=== PATIENT | male | born 1955 | race Caucasian/White ===

== ENCOUNTER 2024-10-17 00:57 | Emergency (ER) | payer MEDICARE, SELFPAY ==
--- OUTSIDE RECORDS SUMMARY | 2024-10-17 00:59 | XMS_ITS | Clinical Summary ---
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 History of biopsy in spring 2005, normal. Personal history of colonic polyps 11/10/2007 Overview (10/25/2022): Adenomatous polyp 04/2006 Colonoscopy 09/2011 normal repeat in 5 years Colonoscopy 05/2017 polyps, repeat in 5 years Colonoscopy 10/2022 SSA, repeat in 3 years Dyskinesia of esophagus 11/10/2007 Actinic keratosis 11/10/2007 Immunizations Immunization Administration Dates Next Due AMB INFLUENZA, IIV4 (AGE=>6M OS) MDV (Flu Clinic Only) 02/13/2017 Amb Influenza, Inactivated A IIV4 (Age 65+ Years) Preserv Free 02/25/2020 Influenza, High-dose Inactivated 01/26/2024 Influenza, High-dose Quadriv alent Inactivated 02/09/2021 Influenza, IIV3 (Age 6-35 mos) 02/22/2016,2014 Influenza, IIV3 (Age >=3 years) 02/19/2014 Influenza, IIV4 03/03/2018,01/29/2016,01/29/2015 Influenza, Inactivated AIIV4 (Age 65+ Years) Preserv Free 03/30/2023 Influenza, Inactivated IIV3 (Age 65+ Years) Preserv Free 02/25/2020 Pneumococcal Conj 20-valent (Prevnar 20) 024 Pneumococcal Poly,23-Valent (Pneumovax) 06/06/19 22 Td (Age >=7 Years) 09/15/1996 Tdap 04/01/2020,11/06/2009 Zoster (Shingrix-RZV, recombinant) 05/01/2020, Family History Medical History Relation Name Comments Cancer-prostate Brother Other Father alcohol dependa nce and of this at 60 Heart failure Half-Sister 1 of this and kidney failure at 66 Kidney disease Half-Sister 1 Obesity Half-Sister 1 Alcoholism Mother Dementia Mother Diabetes Mother Hypertension Mother Stroke Mother of this Relation Name Status Comments Brother Alive Father Half-Brother Alive Half-Sister 1 Half-Sister 2 Alive Mother (Age 82) stroke Paternal Aunt brain tumor Paternal Grandfather pacemak er Paternal Grandmother Social History Tobacco Use Types Packs/Day Years Used Date Smoking Tobacco: Never Passive Smoke Exposure: Never Smokeless Tobacco: Never Tobacco Cessation:Counseling Given: Yes Alcohol Use Standard Drinks/Week Comments Yes 0 (1 standard drink = 0.6 oz pure alcohol) maybe a couple times a month; 1-2 glasses of wine or a beer PHQ-2 Answer Date Recorded PHQ-2 TOTAL SCORE 0 01/23/2024 Social Connections Answer Date Recorded Do you often feel lonely or isolated from those around you? 0 01/23/2024 Alcohol Use Answer Date Recorded How often do you have a drink containing alcohol ? 2 01/21/2023 How many drinks containing a lcohol do you have on a typical day when you are drinking? 0 01/21/2023 How often do you have five or more drinks on one occasion? 0 01/21/2023 Financial Resource Strain Answer Date R ecorded Difficulty of Paying Living Expenses 3 01/23/2024 Difficulty of Paying Living Expenses Not on file 01/23/2024 Food Insecurity Answer Date Recorded Do you worry your food will run out before you are able to buy more? 1 01/23/2024 Transportation Needs Answer Date Record ed Does lack of transportation keep you from medica l appointments? 1 01/23/2024 Does lack of transportation keep you from work, meetings or getting things that you need? 1 01/23/2024 Housing Stability Answer Date Recorded What is your housing situation today? 1 01/23/2024 Utilities Answer Date Recorded Do you have trouble paying f or utilities (for example, heat, electricity, water, phone)? 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 Gender Identity Not on file Sexual Orientation Not on file Occupation Industry Job Start Date Job End Date works at [employer] Not on file Not on file Not on file Obstetrics History Last Filed Vital Signs Vital Sign Reading Time Taken Comments Blood Pressure 137/89 04/02/2024 11:17 AM BRIDGE MAINTENANCE WORKER Pulse 61 04/02/2024 11:17 AM BRIDGE MAINTENANCE WORKER Temperature 36.7 C (98.1 F) 04/02/2024 10:28 AM BRIDGE MAINTENANCE WORKER Respiratory Rate 14 04/02/2024 10:28 AM BRIDGE MAINTENANCE WORKER Oxygen Saturation 96% 04/02/2024 10:28 AM BRIDGE MAINTENANCE WORKER Inhaled Oxygen Concentration - - Weight 86.4 kg (190 lb 7.2 oz) 04/02/2024 10:28 AM BRIDGE MAINTENANCE WORKER Height 180.4 cm (5' 11.02) 04/02/2024 10:28 AM BRIDGE MAINTENANCE WORKER Body Mass Index 26.54 04/02/2024 10:28 AM BRIDGE MAINTENANCE WORKER Plan of Treatment Health Maintenance Due Date Last Done Comments RSV vaccine for adults or (1 - Risk 60-74 years 1-dose series) 2013 Medicare Wellness for age 65+ 2018 COVID-19 vaccine series ( season) 2024 01/26/2024, 03/30/2023, 03/28/2021, Additional history exists Depression screening for age 12+ 01/22/2025 01/23/2024, 01/21/2023, 06/06/2021, Additional history exists BMI (ht and wt on same day) for age 18+ 04/02/2025 04/02/2024, 01/23/2024, 01/21/2023, Additional history exists Colonoscopy through age 75 10/23/202510/23, 10/23/2022, 05/23/2017, Additional history exists Lipids for age 45-75 01/22/2029 01/23/2024, 01/21/2023, 06/06/2021, Additional history exists Tetanus booster 04/01/2030 04/01/2020, 10/18, 09/15/1996 Hepatitis C screening for age 18-79 Completed 02/04/2014 Tdap Completed 04/01/2020, 11/06/2009 Zoster (shingles) series for age 50+ Completed 05/01/2020, 02/25/2020 Influenza Vaccine Completed 01/26/2024, , 02/25/2020, Additional history exists Pneumococcal series for age 50+ Completed 04/02/2024, 06/06/2021 Hepatitis B series for 19+ Aged Out N o longer eligible based on patient's age to complete this topic Procedures Procedure Name Priority Date/Time Associated Diagnosis Comments LIPID PANEL W REFLEX MEASURED LDL Routine 01/23/2024 11:27 AM CDT Lipid screening COLONOSCOPY 10/23/2022 11:11 AM CDT ANTI HCV Routine 02/04/2014 2:23 PM CDT Need for hepatitis C screening test from Last 3 Months or Most Recently Relevant to Health Maintenance Results * LIPID PANEL W REFLEX MEASURED LDL (01/23/2024 11:27 AM CDT) CHOLESTEROL,TOTAL 181 100 - 199 mg/dL 01/23/2024 11:13 PM CDT [facility] Comment: Cholesterol, Total Reference Ranges Desirable <200 mg/dL Borderline 200-239 mg/dL High >=240 mg/dL TRIGLYCERIDES 47 <150 mg/dL 01/23/2024 11:13 PM CDT [facility] HDL CHOLESTEROL 62 >40 mg/dL 11:13 PM CDT [facility] NON-HDL CHOLESTEROL 119 <145 mg/dl 01/23/2024 11:13 PM CDT [facility] CHOL/HDL RATIO 2.92 <4.50 01/23/2024 11:13 PM CDT [facility] LDL CHOLESTEROL 110 <=130 mg/dL 01/23/2024 11:13 PM CDT [facility] VLDL CHOLESTEROL 9 <=30 mg/dL 01/23/2024 11:13 PM CDT [facility] PROVIDER ORDERED STATUS RANDOM 01/23/2024 11:13 PM CDT [facility] Blood BLOOD SPECIMEN / Unknown Venipuncture / Unknown 01/23/2024 11:27 AM CDT 01/23/2024 11:27 AM CDT us Ángel Dwyer MD CHEMISTRY Final Resu lt [facility] [address] [place] [address], [place] * COLONOSCOPY (10/23/2022 11:11 AM CDT) 10/23/2022 11:1 1 AM CDT Narrative Transcriptions Dustin Sanders MD - 10/23/2022 12:01 PM CDT Patient Name: Bear Kinney Procedure Date: 10/23/2022 Gender: Male Date of : 1955 Admit Type: Outpatient Procedure: Colonoscopy Proceduralist: Dustin Sanders MD , Ellie Schwartz RN (Nurse), Kasia Medrano (Nurse) Indications/Pre-Op Diagnosis: High risk colon cancer surveillance:Personal history of sessile serrated colon polyp(less than 10 mm in size) with no dysplasia, Last colonoscopy: May 2017 Medications: Fentanyl 100 micrograms IV, Midazolam 2 mgIV, The level of sedation administered wasmoderate Procedure Description: The patient had risks, benefits and alternatives explained to andgave informed consent. The patient had a stable cardiopulmonary status and judged an adequate candidate for conscious sedation. The endoscope [id number] was passed through the anus andadvanced to the cecum, identified by appendiceal orifice and ileocecal valve.The colonoscopy was performed without difficulty. The patient toleratedthe procedure well. The quality of the bowel preparation was good. The ileocecal valve, appendiceal orifice, and rectum were photographed. Complications: No immediate complications. Estimated Blood Loss & Specimen: Estimated blood loss: none. Specimen collected - Yes and sent to Laboratory Findings: The perianal and digital rectal examinations were normal. A 2 mm polyp was found in the rectum. The polyp was sessile. Thepolyp was removed with a cold biopsy forceps. Resection and retrieval were complete. A few small-mouthed diverticula were found in the sigmoid colon. The colon (entire examined portion) was mildly redundant. The exam was otherwise without abnormality on direct and retroflexion views. Impressions/Post-Op Diagnosis: - One 2 mm polyp in the rectum, removed with a cold biopsy forceps. Resected and retrieved. - Diverticulosis in the sigmoid colon. - Redundant colon. - The examination was otherwise normal on direct and retroflexionviews. Recommendation: - Patient has a contact number available for emergencies. The signsand symptoms of potential delayed complications were discussed with the patient. Return to normal activities tomorrow. Written discharge instructions were provided to the patient. - Resume previous diet. - Continue present medications. - Await pathology results. - Repeat colonoscopy is recommended. The colonoscopy date will be determined after pathology results from today's exam become available for review. Moderate Sedation: A time out was performed before the procedure. Moderate (conscious) sedation was administered by the endoscopy nurse and supervised bythe endoscopist. The following parameters were monitored: oxygensaturation, heart rate, blood pressure, EKG, CO2, respiratory rate, adequacy of pulmonary ventilation and reponse to care. Please refer to the patient's medical record flowsheets and nursing notes for moderate sedation details. Total physician intraservice time was 20 minutes. Dustin Sanders MD 10/23/2022 12:01:18 PM This report has been signed electronically. Note Initiated On: 10/23/2022 11:11 AM Procedure Code(s): --- Professional --- 90841, Colonoscopy, flexible; with biopsy, single or multiple Diagnosis Code(s): --- Professional --- Z86.010, Personal history of colonicpolyps D12.8, Benign neoplasm of rectum K57.30, Diverticulosis of large intestine without perforation or abscess withoutbleeding Q43.8, Other specified congenitalmalformations of intestine CPT copyright 2021 [employer]. All rights reserved. The codes documented in this report are preliminary and upon kiln operator helper reviewmay be revised to meet current compliance requirements. Scope In: 11:35:04 AM Scope Withdrawal Time 0 hours 11 minutes 8 seconds Scope Out: 11:53:16 AM us Dustin Sanders MD PROCEDURE ORD Final Res ult * ANTI HCV [53011.2] (02/04/2014 2:23 PM CDT) HEPATITIS C ANTIBODY Non-Reacti ve Non-Reacti ve 02/04/2014 8:18 PM CDT [facility] Blood specimen (specimen) BLOOD SPECIMEN / Unknown Venipuncture / Unknown 02/04/2014 2:23 PM CDT 02/04/2014 2:23 PM CDT Narrative [facility] - 02/04/2014 8:18 PM CDT Antibodies to HCV not detected; does not exclude the possibility of exposure to HCV. us Pilar Keith SEND OUTS Final R esult [facility] [address] [place] [address], [place] from Last 3 Months or Most Recently Relevant to Health Maintenance Insurance [facility] MEDICARE ADVANTAGE MR Care Teams Printing Grey Cloth Tender Relationship Specialty Start Date End Date Ángel Dwyer MD [address] [place] [address] PCP - General Family Practice 05/06/16
[2024-10-17 01:04] VITALS: BP 151/100; PULSE 96; RESP 16; TEMP 36.7; O2SAT 97; BMI 25.1
--- NOTE | 2024-10-17 01:05 | ED_ITS ---
HPI - Male Genitourinary General Time Seen by Provider: 01:05 Date Seen: 10/17/24 Chief complaint: Urogenital Problems, Male Stated complaint: Unable to urinate Time Seen by Provider: 10/17/24 00:58 Source: patient and RN notes reviewed Mode of arrival: ambulatory History of Present Illness HPI Narrative: This 69-year-old male is ambulatory into the ED with complaint of lower pelvic discomfort and inability to urinate. He has not been able to urinate since about 7:00 p.m.. Prior to that he went twice without difficulty. He has noted no fevers chills, no urinary symptoms suggestive of UTI. He did bike about 25 miles today, has been an avid cyclist throughout his life. He did have 2 beers this evening but was careful to drink as much water as well. He does have a history of BPH. Does see Dr. Marroquin a Neurology. He took some ibuprofen for the discomfort but is not on any other medicines. He has not been on anything for BPH. He is aware that the combination of the cycling and alcohol may have contributed to closure of the urethra from his BPH. Related Data Home Medications ?Medication ?Instructions ?Recorded ?Confirmed No Known Home Medications 10/17/24 06/0 06/12 Allergies Allergy/AdvReac Type Severity Reaction Status Date / Time Penicillins Allergy Verified 10/17/24 01:06 Review of Systems Narrative: As per HPI. [facility] Medical History (Updated 10/17/24 @ 01:57 by Derick Randall RN) Dyskinesia of esophagus ?K22.4 - Dyskinesia of esophagus (ICD-10) Back pain ?M54.9 - Dorsalgia, unspecified (ICD-10) Personal history of colonic polyps ?Z86.0100 - Personal history of colon polyps, unspecified (ICD-10) Elevated prostate specific antigen (PSA) ?R97.20 - Elevated prostate specific antigen [PSA] (ICD-10) Surgical History (Updated 10/17/24 @ 01:57 by Derick Randall RN) History of testicular surgery ?Z98.890 - Other specified postprocedural states (ICD-10) History of colonoscopy ?Z98.890 - Other specified postprocedural states (ICD-10) History of prostate biopsy ?Z98.890 - Other specified postprocedural states (ICD-10) Social History Smoking Status: Never smoker Second hand tobacco smoke exposure: No How often do you have a drink containing alcohol: never AUDIT-C Alcohol total score: 0 Non-prescribed substance use: denies use Exam Const: Vital Signs, click to edit/add: Vital Signs - 24 hr 10/17/24 01:04 10/17/24 01:33 10/17/24 01:48 Temperature 98.1 F 98.1 F 98.1 F Pulse Rate [Pulse Oximeter] 96 85 85 Respiratory Rate 16 16 16 Blood Pressure [Le ft Upper Arm] 151/100 H 145/85 H 145/85 H Pulse Oximetry 97 97 Oxygen Delivery Me thod Room Air Room Air Patient is alert, interactive, no apparent distress but does seem uncomfortable. He is very conversive and pleasant. CV regular rate and rhythm, no murmur, normal S1-S2. Lungs clear anteriorly, no tachypnea, no accessory muscle use. Abdomen is soft, nondistended, mild suprapubic tenderness without rebound or gu arding. Bladder scan did show over 600 mL. Documenting provider has reviewed patient's vital signs: yes Course Course ED Course: Have reviewed with patient the need to place a Moody catheter. My recommendation is to leave this in, allow the urinary system some time to settle down and then he can follow up with Dr. Marroquin. We will check urinalysis, have ordered Uro jet for comfort. Vital Signs Vital signs: Initial Vital Signs Temperature 98.1 F 10/17/24 01:04 Temperature Source Temporal Artery Scan 10/17/24 01:04 Pulse Rate 96 10/17/24 01:04 Respiratory Rate 16 10/17/24 01:04 Blood Pressure 151/100 H 10/17/24 01:04 Blood Pressure Mean 117 H 10/17/24 01:04 Blood Pressure Position Sitting 10/17/24 01:04 Pulse Oximetry 97 10/17/24 01:04 Oxygen Delivery Method Room Air 10/17/24 01:04 Vital Signs Temperature 98.1 F 10/17/24 01:04 Pulse Rate 96 10/17/24 01:04 Respiratory Rate 16 10/17/24 01:04 Blood Pressure 151/100 H 10/17/24 01:04 Pulse Oximetry 97 10/17/24 01:04 Oxygen Delivery Method Room Air 10/17/24 01:04 Temperature 98.1 F 10/17/24 01:48 Pulse Rate 85 10/17/24 01:48 Respiratory Rate 16 10/17/24 01:48 Blood Pressure 145/85 H 10/17/24 01:48 Pulse Oximetry 97 10/17/24 01:33 Oxygen Delivery Method Room Air 10/17/24 01:33 Medications Administered Medications: Discontinued Medications Generic Name Dose Route Start Last Admin Trade Name Freq PRN Reason Stop Dose Admin Lidocaine HCl 6 ml 10/17/24 01:03 10/17/24 01:09 Lidocaine Hcl 2 % Jelly (Top) Sterile UR 6 ml ONCE PRN Administration MDM - Male Genitourinary Lab Data Attestation: I reviewed the patient's lab results. Labs: Lab Results 10/17/24 Range/Units 01:17 Urine Color Yellow (Yellow) Urine Appearance Slightly Cloudy A (Clear) Urine pH 5.5 (5.0-8.5) Ur Specific Salter Path 1.010 (1.000-1.030) Urine Protein Negative (Negative) Urine Glucose (UA) Negative (Negative) Urine Ketones 1+ A (Negative) Urine Blood 3+ A (Negative) Urine Nitrite Negative (Negative) Urine Bilirubin Negative (Negative) Urine Urobilinogen 0.2 (0.2-1.0) Ur Leukocyte Esterase Negative (Negative) Urine RBC 5-10 A (0-2) Urine WBC 0-2 (0-5) Ur Squamous Epith Cells None (None-Few) Urine Bacteria Few A (None) Discharge Plan Discharge Clinical Impression: Acute urinary retention Patient Disposition: Home, Self-Care Condition: Stable Instructions: Urinary Retention in Men (ED), Moody Catheter Placement and Care (ED) Additional Instructions: Follow handouts for care of the Moody catheter. Need to contact Dr. Marroquin on Friday to get scheduled for a follow-up with him; he will be able to direct you on further management and when if possibly the Moody catheter can be removed for trial of urination. If you note that the Moody catheter stops draining, please seek re-evaluation. Activity Level: Activity as Tolerated Prescriptions: No Action No Known Home Medications Stand Alone Forms: [employer] Info Instructions
[2024-10-17] MEDS: lidocaine HCL 2 % JELLY (TOP) STERILE 6 ML UR (01:09)
[2024-10-17 01:20] LABS: Appearance Urine Slightly Cloudy (Clear); Bacteria Urine Few; Bilirubin Urine Negative (Negative); Blood Urine 3+ (Negative); Color Urine Yellow (Yellow); Glucose Urine Negative (Negative); Ketones Urine 1+ (Negative); Leukocyte Esterase Urine Negative (Negative); Nitrite Urine Negative (Negative); Protein Urine Negative (Negative); Urobilinogen Urine 0.2 (0.2-1.0); WBC Urine 0-2 (0-5); pH Urine 5.5 (5.0-8.5)
[2024-10-17 01:33] VITALS: BP 145/85; PULSE 85; RESP 16; TEMP 36.7; O2SAT 97
[2024-10-17 01:48] VITALS: BP 145/85; PULSE 85; RESP 16; TEMP 36.7
== END 2024-10-17 02:00 | disposition home or self-care (01) ==
LOC: ED 01:46
PROVIDERS: Emergency Provider Family Medicine; PCP Family Medicine
DX: R33.9 Retention of urine, unspecified (principal)
CPT/HCPCS: 51702; 51798; 81001; 87086; 99283

== ENCOUNTER 2024-10-19 18:16 | Emergency (ER) | payer MEDICARE, SELFPAY ==
[2024-10-19 18:19] VITALS: BP 162/98; PULSE 72; RESP 18; TEMP 36.7; O2SAT 97; BMI 25.8
--- OUTSIDE RECORDS SUMMARY | 2024-10-19 18:19 | XMS_ITS | Data Portability ---
Author Organization [facility], [facility] Address [address] [place] [address] Care Team Providers Care Freight Receiver Name Role Phone BRIDGETT RAMACHANDRAN Primary Care Provider [phone] Assessment No assessment recorded. Plan of Treatment Reminders Order Date Submit Date Provider Last Modified By Organization Details Last Modified Time Details Appointments LAB 30 2024 10:00A M NURSING-E RIKA Not available Not available Not available LAB BLOOD DRAW 2024 10:00A M LAB-ANA PAULA Not available Not available Not available ESTABLISH ED 10 2024 10:20A M Job Marroquin MD Not available Not available Not available Lab PSA, serum or plasma 2024 025 [facility], [address], [place], [address], 07/13/2024 12:18:01 PSA, total, serum or plasma 2024 025 [email or web address] [facility], [address], [place], [address], 07/13/2024 13:10:15 PSA, serum or plasma 2023 024 [email or web address] [facility], [address], [place], [address], 02/04/2024 15:40:36 PSA, serum or plasma 2023 024 [facility], [address], [place], [address], 10/22/2023 11:11:51 PSA, total, serum or plasma 2023 024 [email or web address] [facility], [address], [place], [address], 10/22/2023 13:39:53 PSA, serum or plasma 2022 023 [facility], [address], [place], [address], 08/12/2022 11:28:10 PSA, total, serum or plasma 2022 023 [email or web address] [facility], [address], [place], [address], 08/12/2022 12:32:02 Referral None recorded. Procedures None recorded. Surgeries None recorded. Imaging MRI, prostate, w/wo contrast - H/O elevated PSA 6.8) - check Prostate MRI 2023 024 [email or web address] [facility], [address], [facility] [address], [place], [address], 02/27/2024 15:31:16 Medication Orders None recorded. Patient TargetsNo targets recorded. Patient InstructionsNo instructions recorded. Reason for Referral None Reported. Results Created Date Observation Date Name Description Value Unit Range Abnormal Flag Note LastModifiedBy Organization Detail LastModifiedTime 08/13/1908/12/2022 PSA, serum or plasm a PSA 4.4ng/ mL 0-4.0 Not Available [facility] [address], [place], [address], 08/12/2022 11:26:15 10/22/19 24 10/22/2023 PSA, serum or plasm a PSA ng/mL 0-4.0 NG/mL Not Available [facility] [address], [place], [address], 10/16/2023 16:55:21 02/04/20 24 02/04/2024 PSA, serum or plasm a PSA 6.8ng/ mL 0-4.0 NG/mL Not Available [facility] [address], [place], [address], 01/29/2024 11:47:30 07/13/19 25 07/13/2024 PSA, serum or plasm a PSA 5.9 ng/mL 0-4.0 NG/mL Not Available [facility] [address], [place], [address], 07/05/2024 15:15:36 03/09/2003/09/2024 MRI, prost ate, w/wo contr ast EXAM: MR PELVIS PROSTA TE wwo CONTRA ST LOCATI ON: [facility] [place] DATE: 2023 INDICA TION: Elevat ed prosta te specif ic antige n (PSA). COMPAR YOHANA: MRI 2015. TECHNI QUE: Routin e MRI prosta te protoc ol includ ing T1, diffus ion, thin-s ection high-r esolut ion T2 and dynami c T1 thin-s ection withou t follow ed by with IV contra st. Study was proces sed using DynaCa d multip aramet melinda comput er-aid ed detect ion system to optimi ze radiol ogist interp retati on by genera ting multip lanar and 3-D recons tructi ons and creati ng subtra ction images from the dynami c contra st data. CONTRA ST: [address] FINDIN GS: Prosta te gland size: 7.0 cm transv erse x 5.9 cm AP x 7.3 cm cranio caudal . Prosta te volume : 138.3 mL. Periph eral zone: No focal prosta te periph eral zone lesion with restri cted diffus ion identi fied. Transi tion zone: Signal change s consis tent with benign prosta tic hypert rophy are noted. The previo usly noted transi tion zone nodule s are not curren tly identi fied. On T2-berry ghted imagin g, no focal transi tion zone lesion can be seen with high-g rade T2 featur es. The prosta tic capsul e appear s intact . The rectop rostat ic angle and neurov ascula r bundle s are unrema rkable . The semina l vesicl es are symmet melinda and unrema rkable . The urinar y bladde r is unrema rkable . Remain cam of the pelvis : No enlarg ed lymph nodes are identi fied in the pelvis . No aggres sive-a ppeari ng lesion s in the visual ized bony pelvis . IMPRES YOCASTA: 1. No focal prosta te lesion identi fied with suspic ious imagin g featur es. The previo usly noted nodule s at the transi tion zone on the prior exam are not curren tly seen. 2. There are change s of enlarg ing benign prosta tic hypert rophy, with an estima mars prosta te volume of 138.3 mL, previo usly 78 mL. This report was electr onical ly interp reted by: DR. TOMY DIAZ M.D. [email or web address] [facility] [id number] [place] [address] [address], [place], [address], 03/11/2024 14:35:52 Result Notes None recorded. Procedures Surgical History Date Name Laterality Status Provider Name and Address Organization Details Recorded Time 10/20/19 25 Fill and Pull/Voiding Trial/TOV completed Viviana Tamayo [facility] 10/19/2024 11:21:02 07/13/19 25 Blood Draw/PRESS BOX CUSTODIAN/PSA RESULTS completed Job Marroquin MD [address], [place], [address], [facility] 07/13/2024 12:17:34 02/04/20 24 Blood Draw/PRESS BOX CUSTODIAN/PSA RESULTS completed Leslye Cabello [facility] 02/04/2024 15:05:53 10/22/19 24 Bladder Scan completed Pau Flores [facility] 10/22/2023 10:30:16 10/22/19 24 Blood Draw/PRESS BOX CUSTODIAN/PSA RESULTS completed Pau Flores [facility] 10/22/2023 10:30:20 08/13/19 23 PRESS BOX CUSTODIAN/blood draw completed Job Marroquin MD [address], [place], [address], [facility] 08/12/2022 11:26:11 05/19/19 22 Colonoscopy completed Job Marroquin MD [address] [place] [address],[address], [place], [address], [facility] 07/13/2024 12:17:10 Removal of testis completed Job Marroquin MD [address] [place] [address],[address], [place], [address], [facility] 08/12/2022 11:27:47 Imaging Results None recorded. Procedure Notes None recorded. Medical Equipment None Reported. Allergies Allergen ID Allergen Name Allergen Category Reaction Reaction Severity Criticality Documentation Date Start Date Code Code System Note Provider Name and Address Organization Details Recorded Time 061289 Product containin g penicilli n (product) medicatio n Not available Not available Not available 08/12/2022 13589 8001 SNOMED Job Marroquin MD [address] [place] [address],[address], [place], [address], [facility] 3 11:24:31 Medications Name Sig Start Date Stop Date Status Note LastModified by Organization Details LastModified Time Boostrix Tdap 2.5 Lf unit-8 mcg-5 Lf/0.5 mL intramuscular syringe ADM 0.5ML IM UTD 08/12 completed Not Available Not Available Not Available Shingrix (PF) 50 mcg/0.5 mL intramuscular suspension, kit ADM 0.5ML IM UTD 08/12 completed Not Available Not Available Not Available Fluad Quad 1242-4582(65yr up)(PF) 60 mcg (15 mcg x 4)/0.5mL IM syringe ADM 0.5ML IM UTD 08/12 completed Not Available Not Available Not Available Vitals Date Recorded Body height Body mass index (BMI) Body weight Provider Name and Address Organization Details Last Updated DateTime 07/13/2024 181.61 cm 25.9 kg/m2 99246.37 g Job Marroquin MD [address], [place], [address] [place] [address] [facility]rolog 07/13/2024 12:15:16 Date Recorded Body height Body mass index (BMI) Body weight Provider Name and Address Organization Details Last Updated DateTime 08/12/2022 181.61 cm 25.9 kg/m2 81647.37 g Job Marroquin MD [address], [place], [address] [place] [address] Urolog 08/12/2022 11:24:08 Date Recorded Body height Body mass index (BMI) Body weight Provider Name and Address Organization Details Last Updated DateTime 10/22/2023 181.61 cm 25.9 kg/m2 55040.37 g Pau Flores [facility] 10/22/2023 10:29:03 Date Recorded Body height Body mass index (BMI) Body weight Provider Name and Address Organization Details Last Updated DateTime 02/04/2024 181.61 cm 25.9 kg/m2 98392.37 g Leslye Cabello [facility] 02/04/2024 15:03:17 Social History Question Answer Notes LastModified by Organizat ion Details LastModified Time Tobacco Smoking Status Never Smoker Job Marroquin MD [address],[facility] [address], [place], [address], [facility] 08/12/2022 11:26:05 What Is Your Level Of Caffeine Consumption? Moderate Information not available 08/12/2022 What Was The Date Of Your Most Recent Tobacco Screening? 07/13/2024 Information not available 07/13/2024 Sex: Male Functional Status Question Answer Note LastModified by Organizat ion Details LastModified Time Do you use any illicit or recreational drugs? No Information not available 08/12/2022 What is your level of alcohol consumption? Occasional Information not available 08/12/2022 Mental Status None recorded. Family History Relationship Description Onset Age of this Age Resolved Age Notes LastModified by Organization Details LastModified Time Father No current problems or disability Not available 08/12 11:25:06 Mother No current problems or disability Not available 08/12 11:25:06 Medical History Condition Response Bleeding Disorder N Kidney Stones N Immunizations Vaccine Type Date Status Note Provider Nam e and Address Organization Details Recorded Time Influenza, split virus, quadrivalent, preservative 7 completed Pau Flores null, [facility] 10/22/2023 10:29:12 Influenza, adjuvanted, trivalent, PF 9 completed Pau Flores null, [facility] 10/22/2023 10:29:12 zoster recombinant 0 completed Pau Flores null, [facility] 10/22/2023 10:29:12 zoster recombinant 0 completed Pau Flores null, [facility] 10/22/2023 10:29:12 Influenza, high-dose, quadrivalent, PF 1 completed Pau Flores null, [facility] 10/22/2023 10:29:12 Influenza, adjuvanted, quadrivalent, PF 0 completed Pau Flores null, [facility] 10/22/2023 10:29:12 Influenza, adjuvanted, quadrivalent, PF 3 completed Pau Flores null, [facility] 10/22/2023 10:29:12 COVID-19, mRNA, LNP-S, PF, 100 mcg/0.5mL dose or 50 mcg/0.25mL dose 1 completed Pau Flores null, [facility] 10/22/2023 10:29:12 COVID-19, mRNA, LNP-S, PF, 100 mcg/0.5mL dose or 50 mcg/0.25mL dose 1 completed Pau Flores null, [facility] 10/22/2023 10:29:12 COVID-19, mRNA, LNP-S, PF, 100 mcg/0.5mL dose or 50 mcg/0.25mL dose 1 completed Pau Flores null, [facility] 10/22/2023 10:29:12 COVID-19, mRNA, LNP-S, PF, 50 mcg/0.5 mL 3 completed Pau Flores null, [facility] 10/22/2023 10:29:12 Tdap 0 completed Pau Flores null, [facility] 10/22/2023 10:29:12 Tdap 0 completed Pau Flores null, [facility] 10/22/2023 10:29:12 Influenza, split virus, trivalent, preservative 4 completed Pau Flores null, [facility] 10/22/2023 10:29:12 Influenza, split virus, trivalent, PF 5 completed Pau Flores null, [facility] 10/22/2023 10:29:12 Influenza, split virus, trivalent, PF 6 completed Pau Flores null, [facility] 10/22/2023 10:29:12 Influenza, split virus, quadrivalent, PF 8 completed Pau Flores null, [facility] 10/22/2023 10:29:12 Influenza, split virus, quadrivalent, PF 6 completed [facility]u [facility] null, [facility] 10/22/2023 10:29:12 Influenza, split virus, quadrivalent, PF 8 completed Pau Flores null, [facility] 10/22/2023 10:29:12 COVID-19, mRNA, LNP-S, PF, sean-sucrose, 30 mcg/0.3 mL 4 completed Leslye Cabello [facility], [facility] 02/04/2024 15:03:28 Influenza, high-dose, trivalent, PF 4 completed Leslye Cabello [facility], [facility] 02/04/2024 15:03:28 Pneumococcal conjugate PCV20, polysaccharide HNP356 conjugate, adjuvant, PF 4 completed Job Marroquin MD [address], [address], [facility] 07/13/2024 12:15:19 pneumococcal polysaccharide PPV23 2 completed Job Marroquin MD [address], [place], [address], [place] [facility] 08/12/2022 11:24:18 Past Encounters Encounter ID Performer Location Encounter Start Date Encounter Closed Date Diagnosis/Indication Diagnosis SNOMED-CT Code Diagnosis ICD10 Code Diagnosis Note [id number] Job Marroquin MD [facility] [employer] [place] [address] 08/12/2022 11:01:54 08/15/2022 16:44:23 Prostate specific antigen above reference range 312801003 R97.20 1. Elevated PSA- s/p MRI cognitive fusion TRUS prostate biopsy - (09/12/15) - 72 gm prostate - benign / acute inflammati on- PSA (4.4) - stable- Follow-up in 1 year with PSA and Bladder scan Benign pro static hyperplasia with outflow obstruction 420000715 N40.1 2. BPH- has mild obstructiv e and irritative symptoms- observer for now- consider starting Flomax 0.4 mg daily is symptoms worsen [id number] MD PAPI Medina_[facility] Paula [employer] [place] [address] [place] [address] 10/22/2023 10:06:58 10/23/2023 09:52:19 Prostate specific antigen above reference range 358431835 R97.20 1. Elevated PSA- s/p MRI cognitive fusion TRUS prostate biopsy - (09/12/15) - 72 gm prostate - benign / acute inflammati on- PSA (5.1) - increased - may be due to prostate irritation - Follow-up in 3 months with PSA(if PSA increases - recheck Prostate MRI and consider bx) Benign pro static hyperplasia with outflow obstruction 112442691 N40.1 2. BPH- has mild obstructiv e and irritative symptoms- PVR = 109 mL- patient would like to observe for now- consider starting Flomax 0.4 mg daily is symptoms worsen [id number] MD PAPI [facility]ina_[facility] Paula [employer] [place] [address] 02/04/2024 14:52:39 02/09/2024 13:53:07 Prostate specific antigen above reference range [id number] R97.20 1. Elevated PSA- s/p MRI cognitive fusion TRUS prostate biopsy - (09/12/15) - 72 gm prostate - benign / acute inflammati on- PSA (6.8) - increased - may be due to prostate irritation - check Prostate MRI - will need UroNav bx if suspicious lesion is seen Benign pro static hyperplasia with outflow obstruction [id number] N40.1 H/O BPH- has mild obstructiv e and irritative symptoms- last PVR = 109 mL- patient would like to observe for now- consider starting Flomax 0.4 mg daily is symptoms worsen [id number] Job Marroquin MD [facility] [address] [address] 07/13/2024 11:34:49 07/14/2024 14:30:48 Prostate specific antigen above reference range [id number] R97.20 1. Elevated PSA- s/p MRI cognitive fusion TRUS prostate biopsy - (09/12/15) - 72 gm prostate - benign / acute inflammati on- Prostate MRI (03/09/24) - 138.3 mL - no suspicious lesions seen- PSA (5.9) - decreased - may be due to prostate irritation - Follow-up in 6 months with PSA and Bladder scan Benign pro static hyperplasia with outflow obstruction [id number] N40.1 H/O BPH- has mild obstructiv e and irritative symptoms- last PVR = 109 mL- has large prostate (138 mL)- patient would like to observe for now- check Bladder scan at Follow-up- consider starting Flomax 0.4 mg daily or Finasterid e 5 mg daily if his symptoms worsen [id number] Job Marroquin MD [facility] [address] [place] [address] 10/19/2024 10:09:33 10/19/2024 11:29:49 Retention of urine [id number] R33.9 Health Concerns Section Related Observation LastModified by Organization Detai ls LastModified Time None Recorded Concern Status LastModified by Organization Details LastModified Time None Recorded Advance Directives Directive None Recorded Payers Insurance Date Sequence Insurance Name Policy Number Policy Pond Covered Member ID Pond Member ID Guarantor Name 07/08/2024 1 [place] [id number] Bear Kinney [id number] 10/19/2024 1 [facility] - DOS ON OR AFTER 19 (MEDICARE REPLACEMENT/ ADVANTAGE - HMO) [id number] Bear Kinney [id number] Bear Zaldivar Nirmal 07/08/2024 1 [facility] [id number] Bear Kinney [id number] Bear Kinney Notes Date Note Type Note Provider Name and Address Organization Details Recorded Time 08/12/2022 text/html 66 yo male with H/O elevated PSA - had negative TRUS bx by Dr. Carcamo (07/29/05). His PSA has fluctuated over the past few years - with slight rise. MRI (08/07/15) revealed two PI-RADS 3 lesions in the prostate. No family H/O prostate cancer. - s/p MRI / TRUS cognitive fusion prostate biopsy - (09/12/15) - 72 gm prostate - benign / acute inflammation.06/11 - He presents for F/U on PSA. He voids every 3-4 hours during the day and 0-1x/night. He notes hesitancy with prolonged sitting (and with EtOH). He notes some urgency with coffee. He denies dysuria. 08/12/22 - He presents for Follow-up on PSA. He voids every 2-4 hours during the day and 0-1x/night. He has hesitancy and slow stream at night and first time in the AM. He notes occasional urgency - denies dysuria.- PSA - 4.4 PSA - 3.43 (11/06/09) - 4.38 (03/15/20)- 3.88 (02/06/11) - 4.18 (05/07/21)- 5.66 (12/01/12) - 4.4 (08/13/22)- 4.72 (02/04/14)- 4.85 (03/15/15)- 5.21 (07/26/15) - Free % - 19%- 6.58 (03/20/16) - Free % - 23%- 5.24 (06/28/16)- 5.56 (01/01/17)- 6.23 (07/16/17)- 4.03 (09/3017)- 4.59 (04/14/18)- 4.63 (10/19/18)Prostate MRI (08/07/15) - 78 gm prostate- Lesion 1 - (PI-RADS 3) - 1.3 x 1.7 cm - Central gland - 4 o'clock- Lesion 2 - (PI-RADS 3) - 1.1 x 1.1 cm - Central gland - 12-12:30 o'clock Job Marroquin MD [address] [place] [address],[address], [place], [address], [facility] - [facility] 08/14/2022 09:15:57 10/22/2023 text/html 68 yo male with H/O elevated PSA - had negative TRUS bx by Dr. Carcamo (07/29/05). His PSA has fluctuated over the past few years - with slight rise. MRI (08/07/15) revealed two PI-RADS 3 lesions in the prostate. No family H/O prostate cancer. - s/p MRI / TRUS cognitive fusion prostate biopsy - (09/12/15) - 72 gm prostate - benign / acute inflammation. 08/12/22 - He presents for Follow-up on PSA. He voids every 2-4 hours during the day and 0-1x/night. He has hesitancy and slow stream at night and first time in the AM. He notes occasional urgency - denies dysuria. 10/22/23-He presents for Follow-up on PSA and urination. He voids every 2-3 hours during the day and 0-1x/night. Notes more urgency - no dysuria.- PSA - 5.1 - bicycling- PVR-109 PSA - 4.72 (02/04/14)- 4.85 (03/15/15)- 5.21 (07/26/15) - Free % - 19%- 6.58 (03/20/16) - Free % - 23%- 5.24 (06/28/16)- 5.56 (01/01/17)- 6.23 (07/16/17)- 4.03 (09/3017)- 4.59 (04/14/18)- 4.63 (10/19/18)- 4.38 (03/15/20)- 4.18 (05/07/21)- 4.4 (08/13/22)- 5.1 (10/22/23)Prostate MRI (08/07/15) - 78 gm prostate- Lesion 1 - (PI-RADS 3) - 1.3 x 1.7 cm - Central gland - 4 o'clock- Lesion 2 - (PI-RADS 3) - 1.1 x 1.1 cm - Central gland - 12-12:30 o'clock Job Marroquin MD [address] [place] [address],[address], [place], [address] 10/22/2023 20:00:34 02/04/2024 text/html 68 yo male with H/O elevated PSA - had negative TRUS bx by Dr. Carcamo (07/29/05). His PSA has fluctuated over the past few years - with slight rise. MRI (08/07/15) revealed two PI-RADS 3 lesions in the prostate. No family H/O prostate cancer. - s/p MRI / TRUS cognitive fusion prostate biopsy - (09/12/15) - 72 gm prostate - benign / acute inflammation. 08/12/22 - He presents for Follow-up on PSA. He voids every 2-4 hours during the day and 0-1x/night. He has hesitancy and slow stream at night and first time in the AM. He notes occasional urgency - denies dysuria. 10/22/23 - He presents for Follow-up on PSA and urination. He voids every 2-3 hours during the day and 0-1x/night. Notes more urgency - no dysuria. 02/04/24 - He presents for Follow-up on PSA and urination. He reports no change in urination - voids every 2-3 hours during the day and 0-1x/night. He will be retiring this Fall.- PSA - 6.8 PSA - 4.72 (02/04/14)- 4.85 (03/15/15)- 5.21 (07/26/15) - Free % - 19%- 6.58 (03/20/16) - Free % - 23%- 5.24 (06/28/16)- 5.56 (01/01/17)- 6.23 (07/16/17)- 4.03 (09/3017)- 4.59 (04/14/18)- 4.63 (10/19/18)- 4.38 (03/15/20)- 4.18 (05/07/21)- 4.4 (08/13/22)- 5.1 (10/22/23)- 6.8 (02/04/24)Prostate MRI (08/07/15) - 78 gm prostate- Lesion 1 - (PI-RADS 3) - 1.3 x 1.7 cm - Central gland - 4 o'clock- Lesion 2 - (PI-RADS 3) - 1.1 x 1.1 cm - Central gland - 12-12:30 o'clock Job Marroquin MD [address] [place] [address],[address], [place], [address], [facility] - [facility] 02/07/2024 20:31:20 07/13/2024 text/html 68 yo male with H/O elevated PSA - had negative TRUS bx by Dr. Carcamo (07/29/05). His PSA has fluctuated over the past few years - with slight rise. MRI (08/07/15) revealed two PI-RADS 3 lesions in the prostate. No family H/O prostate cancer. - s/p MRI / TRUS cognitive fusion prostate biopsy - (09/12/15) - 72 gm prostate - benign / acute inflammation. 10/22/23 - He presents for Follow-up on PSA and urination. He voids every 2-3 hours during the day and 0-1x/night. Notes more urgency - no dysuria. 02/04/24 - He presents for Follow-up on PSA and urination. He reports no change in urination - voids every 2-3 hours during the day and 0-1x/night. He will be retiring this Fall. 07/13/24 - He presents for Follow-up on PSA and urination. He voids every 2-3 hours during the day and 0-1x/night. He notes hesitancy at night.- PSA - 5.9 PSA - 4.72 (02/04/14)- 4.85 (03/15/15)- 5.21 (07/26/15) - Free % - 19%- 6.58 (03/20/16) - Free % - 23%- 5.24 (06/28/16)- 5.56 (01/01/17)- 6.23 (07/16/17)- 4.03 (09/3017)- 4.59 (04/14/18)- 4.63 (10/19/18)- 4.38 (03/15/20)- 4.18 (05/07/21)- 4.4 (08/13/22)- 5.1 (10/22/23)- 6.8 (02/04/24)- 5.9 (07/13/24)Prostate MRI (08/07/15) - 78 gm prostate- Lesion 1 - (PI-RADS 3) - 1.3 x 1.7 cm - Central gland - 4 o'clock- Lesion 2 - (PI-RADS 3) - 1.1 x 1.1 cm - Central gland - 12-12:30 o'clock Prostate MRI (03/09/24) - 138.3 mL - no suspicious lesions seen Job Marroquin MD [address], [place], [address], [facility] 07/13/2024 14:06:07 10/19/2024 text/html Pt went into retention on 10/16. Catheter was place at [facility]. OK for TOV per JOANNA Brock 2Nurse visit completed by Viviana Segura RN. Viviana padilla [facility] 10/19/2024 11:29:46
--- OUTSIDE RECORDS SUMMARY | 2024-10-19 18:19 | XMS_ITS | Clinical Summary ---
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 Gender Identity Not on file Sexual Orientation Not on file Occupation Industry Job Start Date Job End Date works at [employer] Not on file Not on file Not on file Obstetrics History Last Filed Vital Signs Vital Sign Reading Time Taken Comments Blood Pressure 137/89 04/02/2024 11:17 AM MULTIPLE DRILL OPERATOR Pulse 61 04/02/2024 11:17 AM MULTIPLE DRILL OPERATOR Temperature 36.7 C (98.1 F) 04/02/2024 10:28 AM MULTIPLE DRILL OPERATOR Respiratory Rate 14 04/02/2024 10:28 AM MULTIPLE DRILL OPERATOR Oxygen Saturation 96% 04/02/2024 10:28 AM MULTIPLE DRILL OPERATOR Inhaled Oxygen Concentration - - Weight 86.4 kg (190 lb 7.2 oz) 04/02/2024 10:28 AM MULTIPLE DRILL OPERATOR Height 180.4 cm (5' 11.02) 04/02/2024 10:28 AM MULTIPLE DRILL OPERATOR Body Mass Index 26.54 04/02/2024 10:28 AM MULTIPLE DRILL OPERATOR Plan of Treatment Health Maintenance Due Date [...] - 199 mg/dL 01/23/2024 11:13 PM CDT [facility] Comment: Cholesterol, Total Reference Ranges Desirable <200 mg/dL Borderline 200-239 mg/dL High >=240 mg/dL TRIGLYCERIDES 47 <150 mg/dL 01/23/2024 11:13 PM CDT [facility] HDL CHOLESTEROL 62 >40 mg/dL 11:13 PM CDT [facility] NON-HDL CHOLESTEROL 119 <145 mg/dl 01/23/2024 11:13 PM CDT [facility] CHOL/HDL RATIO 2.92 <4.50 01/23/2024 11:13 PM CDT [facility] LDL CHOLESTEROL 110 <=130 mg/dL 01/23/2024 11:13 PM CDT [facility] VLDL CHOLESTEROL 9 <=30 mg/dL 01/23/2024 11:13 PM CDT [facility] PROVIDER ORDERED STATUS RANDOM 01/23/2024 11:13 PM CDT [facility] Blood BLOOD SPECIMEN / Unknown Venipuncture / Unknown 01/23/2024 11:27 AM CDT 01/23/2024 11:27 AM CDT us Ángel Dwyer MD CHEMISTRY Final Resu lt [facility] [address] [place] [address], [place] * COLONOSCOPY (10/23/2022 11:11 AM CDT) [...] adequate candidate for conscious sedation. The endoscope [id number] was passed through the anus andadvanced to [...] 11:11 AM Procedure Code(s): --- Professional --- 75868, Colonoscopy, flexible; with biopsy, single or multiple Diagnosis Code(s): --- Professional --- Z86.010, Personal history of colonicpolyps D12.8, Benign neoplasm of rectum K57.30, Diverticulosis of large intestine without perforation or abscess withoutbleeding Q43.8, Other specified congenitalmalformations of intestine CPT copyright 2021 [employer]. All rights reserved. The codes documented in this report are preliminary and upon hardener helper reviewmay be revised to meet current compliance requirements. Scope In: 11:35:04 AM Scope Withdrawal Time 0 hours 11 minutes 8 seconds Scope Out: 11:53:16 AM us Dustin Sanders MD PROCEDURE ORD Final Res ult * ANTI HCV [30206.2] (02/04/2014 2:23 PM CDT) HEPATITIS C ANTIBODY Non-Reacti ve Non-Reacti ve 02/04/2014 8:18 PM CDT [facility] Blood specimen (specimen) BLOOD SPECIMEN / Unknown Venipuncture / Unknown 02/04/2014 2:23 PM CDT 02/04/2014 2:23 PM CDT Narrative [facility] - 02/04/2014 8:18 PM CDT Antibodies to HCV not detected; does not exclude the possibility of exposure to HCV. us Pilar Keith SEND OUTS Final R esult [facility] [address] [place] [address], [place] from Last 3 Months or Most Recently Relevant to Health Maintenance Insurance [facility] MEDICARE ADVANTAGE MR Care Teams Surfacing Machine Operator Relationship Specialty Start Date End Date Ángel Dwyer MD [address] [place] [address] PCP - General Family Practice 05/06/16
--- OUTSIDE RECORDS SUMMARY | 2024-10-19 18:19 | XMS_ITS | Continuity of Care Document ---
Author Organization [facility] Address [address] [place] [address] Care Team Providers Care Envelope Folding Machine Operator Name Role Phone BRIDGETT RAMACHANDRAN Primary Care Provider [phone] Assessment No assessment recorded. Plan of Treatment [...] Not available Not available Not available Lab None recorded. Referral None recorded. Procedures None recorded. Surgeries None recorded. Imaging None recorded. Medication Orders None recorded. Patient TargetsNo targets recorded. Patient InstructionsNo instructions recorded. Reason for Referral None Reported. Procedures Surgical History Date Name Laterality Status Provider Name and Address Organization Details Recorded Time 10/20/19 25 Fill and Pull/Voiding Trial/TOV completed Viviana Tamayo [facility] 10/19/2024 11:21:02 07/13/19 25 Blood Draw/CRIMINALIST TECHNICIAN/PSA RESULTS completed Job Marroquin MD [address] [place] [address],[address], [address], [facility] 07/13/2024 12:17:34 02/04/20 24 Blood Draw/CRIMINALIST TECHNICIAN/PSA RESULTS completed Leslye Cabello [facility] 02/04/2024 15:05:53 10/22/19 24 Bladder Scan completed Pau Flores [facility] 10/22/2023 10:30:16 10/22/19 24 Blood Draw/CRIMINALIST TECHNICIAN/PSA RESULTS completed Pau Flores [facility] 10/22/2023 10:30:20 08/13/19 23 CRIMINALIST TECHNICIAN/blood draw completed Job Marroquin MD [address] [place] [address],[address] [facility], [place], [address], [facility] 08/12/2022 11:26:11 05/19/19 22 Colonoscopy completed Job Marroquin MD [address] [place] [address],[address] [place] [address], [phone], [facility] 07/13/2024 12:17:10 Removal of testis completed Job Marroquin MD [address] [place] [address],[address], [place], [address], [facility] 08/12/2022 11:27:47 Imaging Results None recorded. Procedure Notes None recorded. Medical Equipment None Reported. Allergies Allergen ID Allergen Name Allergen Category Reaction Reaction Severity Criticality Documentation Date Start Date Code Code System Note Provider Name and Address Organization Details Recorded Time 718935 Product containin g penicilli n (product) medicatio n Not available Not available Not available 08/12/2022 [id number] SNOMED Job Marroquin MD [address] [place] [address],[address] [place] [address], [phone], [facility] 11:24:31 Medications Name Sig Start Date Stop Date Status Note LastModified by Organization Details LastModified Time Boostrix Tdap 2.5 Lf unit-8 mcg-5 Lf/0.5 mL intramuscular syringe ADM 0.5ML IM UTD 08/12 completed Not Available Not Available Not Available Shingrix (PF) 50 mcg/0.5 mL intramuscular suspension, kit ADM 0.5ML IM UTD 08/12 completed Not Available Not Available Not Available Fluad Quad 5923-0884(65yr up)(PF) 60 mcg (15 mcg x 4)/0.5mL IM syringe ADM 0.5ML IM UTD 08/12 completed Not Available Not Available Not Available Vitals None Recorded Social History Question Answer Notes LastModified by Organizat ion Details LastModified Time Tobacco Smoking Status Never Smoker Job Marroquin MD [address] [place] [address],[address], [place], [address], [facility] 08/12/2022 11:26:05 What Is Your Level [...] quadrivalent, preservative 7 completed Pau Flores null, [facility] 10/22/2023 10:29:12 Influenza, adjuvanted, trivalent, PF 9 completed Pau Flores null, [facility] 10/22/2023 10:29:12 [facility] 10:29:12 zoster recombinant 0 completed Pau Flores null, [facility] 10/22/2023 10:29:12 Influenza, high-dose, quadrivalent, PF 1 completed Pau Flores null, [facility] 10/22/2023 10:29:12 Influenza, adjuvanted, quadrivalent, PF 0 completed Pau Flores null, [facility] 10/22/2023 10:29:12 Influenza, adjuvanted, quadrivalent, PF 3 completed Pau Flores null, [facility] 10/22/2023 10:29:12 COVID-19, mRNA, LNP-S, PF, 100 mcg/0.5mL dose or 50 mcg/0.25mL dose 1 completed Pau Flores null, [facility] 10/22/2023 10:29:12 COVID-19, mRNA, LNP-S, PF, 100 mcg/0.5mL dose or 50 mcg/0.25mL dose 1 completed Pau Flores null, [facility] 10/22/2023 10:29:12 COVID-19, mRNA, LNP-S, PF, 100 mcg/0.5mL dose or 50 mcg/0.25mL dose 1 completed Pau Flores null, [facility] 10/22/2023 10:29:12 COVID-19, mRNA, LNP-S, PF, 50 mcg/0.5 mL 3 completed Pau Flores null, [facility] 10/22/2023 10:29:12 Tdap 0 completed Pau Flores null, [facility] 10/22/2023 10:29:12 Tdap 0 completed Pau Flores null, [facility] 10/22/2023 10:29:12 Influenza, split virus, trivalent, preservative 4 completed Pau Flores null, [facility] 10/22/2023 10:29:12 Influenza, split virus, trivalent, PF 5 completed Pau Flores null, [facility] 10/22/2023 10:29:12 Influenza, split virus, trivalent, PF 6 completed Pau Flores null, [facility] 10/22/2023 10:29:12 Influenza, split virus, quadrivalent, PF 8 completed Pau Flores null, [facility] 10/22/2023 10:29:12 Influenza, split virus, quadrivalent, PF 6 completed Pau Flores null, [facility] 10/22/2023 10:29:12 Influenza, split virus, quadrivalent, PF 8 completed Pau Flores null, [facility] 10/22/2023 10:29:12 COVID-19, mRNA, LNP-S, PF, sean-sucrose, 30 mcg/0.3 mL 4 [facility]/04[facility] 15:03:28 Influenza, high-dose, trivalent, PF 4 [facility]/04/2024 15:03:28 Pneumococcal conjugate PCV20, polysaccharide [id number] conjugate, adjuvant, PF 4 completed Job Marroquin MD [address] [place] [address],[facility] [address], [place], [address], [facility] 07/13/2024 12:15:19 pneumococcal polysaccharide PPV23 2 completed Job Marroquin MD [address] [place] [address],[facility] [address], [address], [facility] 08/12/2022 11:24:18 Past Encounters Encounter ID Performer Location Encounter Start Date Encounter Closed Date Diagnosis/Indication Diagnosis SNOMED-CT Code Diagnosis ICD10 Code Diagnosis Note [id number] Job Marroquin MD [facility] [address] [place] [address] 10/19/2024 10:09:33 10/19/2024 11:29:49 Retention of urine [id number] R33.9 Health Concerns Section Related Observation LastModified by Organization Detai ls LastModified Time None Recorded Concern Status LastModified by Organization Details LastModified Time None Recorded Payers Encounter Date Sequence Insurance Name Policy Number Policy Pond Covered Member ID Pond Member ID Guarantor Name 10/19/2024 1 [employer] - DOS ON OR AFTER 19 (MEDICARE REPLACEMENT /ADVANTAGE - HMO) [id number] 06 Bear Kinney [id number] Bear Kinney Notes Date Note Type Note Provider Name and Address Organization Details Recorded Time 10/19/2024 text/html Pt went into retention on 10/16. Catheter was place at [facility], [place]. [place] for TOV per JOANNA Brock 6/2Nurse visit completed by Viviana Segura RN. [facility] 10/19/2024 11:29:46
--- NOTE | 2024-10-19 18:34 | ED_ITS ---
HPI - General Adult General Chief complaint: Urogenital Problems, Male Stated complaint: urinary problems Time Seen by Provider: 10/19/24 18:17 History of Present Illness HPI narrative: Patient presents to the emergency department complaining of urinary retention. Patient had catheter removed this morning and trialed urinating without the catheter. Patient was able to pee 9 times since this morning. Now patient is unable to urinate more than a dribble. 69-year-old man presenting to the emergency department with concern of inability urinate. Was seen 2 days ago here in the emergency department with acute urinary retention following a long bike ride which is common for Mr. Kinney, and a couple beers he had developed urinary retention of more than 600 mL. Followed up today mid-morning with Urology and passed a test of void and so catheter was pulled. He has been following their instructions to the a letter drinking regular fluid and has urinated 9 times. Last urine output was clear but he has dropped off precipitously in the amount of urine he can get get out per avoid. No fever. Does have a history of BPH and sees Dr. Marroquin with urology. Related Data Home Medications ?Medication ?Instructions ?Recorded ?Confirmed No Known Home Medications 10/17/2408/10 Allergies Allergy/AdvReac Type Severity Reaction Status Date / Time Penicillins Allergy Verified 10/19/24 18:24 Review of Systems Status of ROS: Reports: 6 or more systems reviewed and unremarkable except as noted in History and below [facility] Medical History Dyskinesia of esophagus ?K22.4 - Dyskinesia of esophagus (ICD-10) Back pain ?M54.9 - Dorsalgia, unspecified (ICD-10) Personal history of colonic polyps ?Z86.0100 - Personal history of colon polyps, unspecified (ICD-10) Elevated prostate specific antigen (PSA) ?R97.20 - Elevated prostate specific antigen [PSA] (ICD-10) Surgical History History of testicular surgery ?Z98.890 - Other specified postprocedural states (ICD-10) History of colonoscopy ?Z98.890 - Other specified postprocedural states (ICD-10) History of prostate biopsy ?Z98.890 - Other specified postprocedural states (ICD-10) Social History Smoking Status: Never smoker Second hand tobacco smoke exposure: No How often do you have a drink containing alcohol: never AUDIT-C Alcohol total score: 0 Non-prescribed substance use: denies use Exam Narrative: Exam Narrative: Pleasant. Restless. He describes himself as anxious at the moment. Breathing easily. Skin is warm and dry. Bladder scanned for more than 500 mL. Const: Vital Signs, click to edit/add: Vital Signs - 24 hr 10/19/24 18:19 Temperature 98.0 F Pulse Rate [Right Pulse Oximeter] 72 Respiratory Rate 18 Blood Pressure [Ri ght Upper Arm] 162/98 H Pulse Oximetry 97 Oxygen Delivery Me thod Room Air Documenting provider has reviewed patient's vital signs: yes Course Vital Signs Vital signs: Initial Vital Signs Temperature 98.0 F 10/19/24 18:19 Temperature Source Temporal Artery Scan 10/19/24 18:19 Pulse Rate 72 10/19/24 18:19 Pulse Rhythm Regular 10/19/24 18:19 Pulse Strength 3+ Normal 10/19/24 18:19 Respiratory Rate 18 10/19/24 18:19 Blood Pressure 162/98 H 10/19/24 18:19 Blood Pressure Mean 119 H 10/19/24 18:19 Blood Pressure Position Sitting 10/19/24 18:19 Pulse Oximetry 97 10/19/24 18:19 Oxygen Delivery Method Room Air 10/19/24 18:19 Vital Signs Temperature 98.0 F 10/19/24 18:19 Pulse Rate 72 10/19/24 18:19 Respiratory Rate 18 10/19/24 18:19 Blood Pressure 162/98 H 10/19/24 18:19 Pulse Oximetry 97 10/19/24 18:19 Oxygen Delivery Method Room Air 10/19/24 18:19 Temperature 98.0 F 10/19/24 18:19 Pulse Rate 72 10/19/24 18:19 Respiratory Rate 18 10/19/24 18:19 Blood Pressure 162/98 H 10/19/24 18:19 Pulse Oximetry 97 10/19/24 18:19 Oxygen Delivery Method Room Air 10/19/24 18:19 Medications Administered Medications: Generic Name Dose Route Start Last Admin Trade Name Freq PRN Reason Stop Dose Admin Lidocaine HCl 6 ml 10/19/24 18:59 10/19/24 19:15 Lidocaine Hcl 2 % Jelly (Top) Sterile UR 6 ml ONCE PRN Administration catheter placement Medical Decision Making MDM Narrative Medical decision making narrative: Urinary retention has returned in the setting of BPH. Perhaps needs longer time of catheter in place for retraining. Ordering lidocaine jelly for catheter placement. Catheterized for over 600 mL of light yellow urine. On reassessment notes himself to be feeling a lot better. See patient discharge plan for further discussion I'm happy you are feeling better. Yes, I suspect you will need this in a little longer than last time. Place a call in to Urology, considering you have a relationship with them, to follow up with them for further recommendations. Medical Records Medical records reviewed: Yes I reviewed the patient's medical records Discharge Plan Discharge Clinical Impression: Acute urinary retention, BPH (benign prostatic hyperplasia) Patient Disposition: Home, Self-Care Condition: Improved Additional Instructions: I'm happy you are feeling better. Yes, I suspect you will need this in a little longer than last time. Place a call in to Urology, considering you have a relationship with them, to follow up with them for further recommendations. Prescriptions: No Action No Known Home Medications Follow Up/Referrals: Ángel Dwyer MD [Primary Care Provider, Family Practice] Stand Alone Forms: Schvey Info Instructions
[2024-10-19] MEDS: lidocaine HCL 2 % JELLY (TOP) STERILE 6 ML UR (19:15)
== END 2024-10-19 20:02 | disposition home or self-care (01) ==
PROVIDERS: Emergency Provider Family Medicine; PCP Family Medicine
DX: N40.1 Benign prostatic hyperplasia with lower urinary tract symptoms (principal); R33.8 Other retention of urine
CPT/HCPCS: 51702; 99283

== ENCOUNTER 2024-10-29 11:09 | Emergency (ER) | payer MEDICARE, SELFPAY ==
--- OUTSIDE RECORDS SUMMARY | 2024-10-29 11:12 | XMS_ITS | Continuity of Care Document ---
Author Organization [facility], [facility] Address [address] [place] [address] Care Team Providers Care Farm Management Adviser Name Role Phone LANEYAEL BRIDGETT Primary Care Provider Assessment No assessment recorded. Plan of Treatment Reminders Order Date Submit Date Provider Last Modified By Organization Details Last Modified Time Details Appointments LAB BLOOD DRAW 2024 10:00A M LAB-ANA [...] Name and Address Organization Details Recorded Time 10/28/19 25 Fill and Pull/Voiding Trial/TOV completed Viviana Tamayo [facility] 10/27/2024 12:03:42 10/20/19 25 Fill and Pull/Voiding Trial/TOV completed Viviana Tamayo [facility] 10/19/2024 11:21:02 07/13/19 25 Blood Draw/BIOFUELS PRODUCTION MANAGER/PSA RESULTS completed Job Marroquin MD [address] [place] [address], [place], [address], [facility] 07/13/2024 12:17:34 02/04/20 24 Blood Draw/BIOFUELS PRODUCTION MANAGER/PSA RESULTS completed Leslye Cabello [facility] 02/04/2024 15:05:53 10/22/19 24 Bladder Scan completed Pau Flores [facility] 10/22/2023 10:30:16 10/22/19 24 Blood Draw/BIOFUELS PRODUCTION MANAGER/PSA RESULTS completed Pau Flores [facility] 10/22/2023 10:30:20 08/13/19 23 BIOFUELS PRODUCTION MANAGER/blood draw completed Job Marroquin MD [address] [place] [address],[address], [place], [address], [facility] 08/12/2022 11:26:11 05/19/19 22 Colonoscopy completed Job Marroquin MD [address] [place] [address],[address], [place], [address], [facility] 07/13/2024 12:17:10 Removal of testis completed Job Marroquin MD [address] [place] [address],[facility] [address], [place], [address], [facility] 08/12/2022 11:27:47 Imaging Results None recorded. Procedure Notes None recorded. Medical Equipment None Reported. Allergies Allergen ID Allergen Name Allergen Category Reaction Reaction Severity Criticality Documentation Date Start Date Code Code System Note Provider Name and Address Organization Details Recorded Time 305222 Product containin g penicilli n (product) medicatio n Not available Not available Not available 08/12/2022 21397 8001 SNOMED Job Marroquin MD [address] [place] [address],[address] [place] [address], [phone], [facility] 11:24:31 Medications Name Sig Start Date Stop Date Status Note LastModified by Organization Details LastModified Time tamsulosin 0.4 mg capsule Take 1 capsule every day by oral route. 2024 active Not Available Not Available Not Avai lable finasteride 1 mg tablet Take 1 tablet every day by oral route. 2024 active Not Available Not Available Not Avai lable Boostrix Tdap 2.5 Lf unit-8 mcg-5 Lf/0.5 mL intramuscula r syringe ADM 0.5ML IM UTD 08/12 completed Not Available Not Available Not Available Shingrix (PF) 50 mcg/0.5 mL intramuscula r suspension, kit ADM 0.5ML IM UTD 08/12 completed Not Available Not Available Not Available Fluad Quad 1222-1875(65 yr up)(PF) 60 mcg (15 mcg x 4)/0.5mL IM syringe ADM 0.5ML IM UTD 08/12 completed Not Available Not Available Not Available Vitals None Recorded Social History Question Answer Notes LastModified by Organizat ion Details LastModified Time Tobacco Smoking Status Never Smoker Job Marroquin MD [address] [facility],[address], [place], [address], [facility] 08/12/2022 11:26:05 What Is [...] available 08/12 11:25:06 Medical History Condition Response Kidney Stones N Bleeding Disorder N Immunizations Vaccine Type Date Status Note Provider Nam e and Address Organization Details Recorded Time Influenza, split virus, quadrivalent, preservative 7 completed Pau Flores null, [facility] 10/22/2023 10:29:12 Influenza, adjuvanted, trivalent, PF 9 completed Pau Flores null, [facility] 10/22/2023 10:29:12 zoster recombinant 0 completed Pau Flores null, [facility] 10/22/2023 10:29:12 zoster recombinant 0 completed Pau Flores null, [facility] 10/22/2023 10:29:12 Influenza, high-dose, quadrivalent, PF 1 completed Pau Flores null, [facility] 10/22/2023 10:29:12 Influenza, adjuvanted, quadrivalent, PF 0 completed Pau Flores null, [facility] 10/22/2023 10:29:12 Influenza, adjuvanted, quadrivalent, PF 3 completed Pau Flores null, [facility] 10/22/2023 10:29:12 COVID-19, mRNA, LNP-S, PF, 100 mcg/0.5mL dose or 50 mcg/0.25mL dose 1 completed Pau Flores null, [facility] 10/22/2023 10:29:12 COVID-19, mRNA, LNP-S, PF, 100 mcg/0.5mL dose or 50 mcg/0.25mL dose 1 completed Pau Flores null, [facility] 10/22/2023 10:29:12 COVID-19, mRNA, LNP-S, PF, 100 mcg/0.5mL dose or 50 mcg/0.25mL dose 1 completed Pau Flores null, [facility] 10/22/2023 10:29:12 COVID-19, mRNA, LNP-S, PF, 50 mcg/0.5 mL 3 completed Pau Flores null, [facility] 10/22/2023 10:29:12 Tdap 0 completed Pau Flores null, [facility] 10/22/2023 10:29:12 Tdap 0 completed Pau Flores null, [facility] 10/22/2023 10:29:12 Influenza, split virus, trivalent, preservative 4 completed Pau Flores null, [facility] 10/22/2023 10:29:12 Influenza, split virus, trivalent, PF 5 completed Pau Flores null, [facility] 10/22/2023 10:29:12 Influenza, split virus, trivalent, PF 6 completed Pau Flores null, [facility] 10/22/2023 10:29:12 Influenza, split virus, quadrivalent, PF 8 completed Pau Flores null, [facility] 10/22/2023 10:29:12 Influenza, split virus, quadrivalent, PF 6 completed Pau Flores null, [facility] 10/22/2023 10:29:12 Influenza, split virus, quadrivalent, PF 8 completed Pau Flores null, [facility] 10/22/2023 10:29:12 COVID-19, mRNA, LNP-S, PF, sean-sucrose, 30 mcg/0.3 mL 4 completed Leslye Cabello null, [facility] 02/04/2024 15:03:28 Influenza, high-dose, trivalent, PF 4 completed Leslye Cabello null, [facility] 02/04/2024 15:03:28 Pneumococcal conjugate PCV20, polysaccharide [id number] conjugate, adjuvant, PF 4 completed Job Marroquin MD [address] [place] [address], [phone], [facility] 07/13/2024 12:15:19 pneumococcal polysaccharide PPV23 2 completed Job Marroquin MD [address] [place] [address], [phone], [facility] 08/12/2022 11:24:18 Past Encounters Encounter ID Performer Location Encounter Start Date Encounter Closed Date Diagnosis/Indication Diagnosis SNOMED-CT Code Diagnosis ICD10 Code Diagnosis Note [id number] Job Marroquin MD [facility] [address] [place] [address] 10/19/2024 10:09:33 10/21/2024 13:12:20 Retention of urine 903205838 R33.9 Health Concerns Section Related Observation LastModified by Organization Detai ls LastModified Time None Recorded Concern Status LastModified by Organization Details LastModified Time None Recorded Payers Encounter Date Sequence Insurance Name Policy Number Policy Pond Covered Member ID Pond Member ID Guarantor Name 10/19/2024 1 [employer] - DOS ON OR AFTER 19 (MEDICARE REPLACEMENT /ADVANTAGE - HMO) [id number] 06 Bear Kinney [id number] Bear Kinney Notes Date Note Type Note Provider Name and Address Organization Details Recorded Time 10/19/2024 text/html Pt went into retention on 10/16. Catheter was place at [facility]. [place] for TOV per JOANNA Brock 6/2Nurse visit completed by Viviana Segura RN. MONICA Toure - [facility] 10/19/2024 11:29:46
--- OUTSIDE RECORDS SUMMARY | 2024-10-29 11:12 | XMS_ITS | Continuity of Care Document ---
Author Organization [facility], [facility] Address [address] [place] [address] Care Team Providers Care Rivet Driver Name Role Phone LANEYAEL BRIDGETT Primary Care Provider [phone] Assessment No assessment recorded. Plan of Treatment [...] Fill and Pull/Voiding Trial/TOV completed Viviana Tamayo [facility] 10/27/2024 12:03:42 10/20/19 25 Fill and Pull/Voiding Trial/TOV completed Viviana Tamayo [facility] 10/19/2024 11:21:02 07/13/19 25 Blood Draw/MOBILE MARKETING SPECIALIST/PSA RESULTS completed Job Marroquin MD [address] [place] [address], [place], [address], [facility] 07/13/2024 12:17:34 02/04/20 24 Blood Draw/MOBILE MARKETING SPECIALIST/PSA RESULTS completed Leslye Cabello [facility] 02/04/2024 15:05:53 10/22/19 24 Bladder Scan completed Pau Flores [facility] 10/22/2023 10:30:16 10/22/19 24 Blood Draw/MOBILE MARKETING SPECIALIST/PSA RESULTS completed Pau Flores [facility] 10/22/2023 10:30:20 08/13/19 23 MOBILE MARKETING SPECIALIST/blood draw completed Job Marroquin MD [address] [place] [address],[address], [place], [address], [facility] 08/12/2022 11:26:11 05/19/19 22 Colonoscopy completed Job Marroquin MD [address] [place] [address],[address], [place], [address], [facility] 07/13/2024 12:17:10 Removal of testis completed Job Marroquin MD [address] [place] [address],[facility] [address], [place], [address], [facility] 08/12/2022 11:27:47 Imaging Results None recorded. Procedure Notes None recorded. Medical Equipment None Reported. Allergies Allergen ID Allergen Name Allergen Category Reaction Reaction Severity Criticality Documentation Date Start Date Code Code System Note Provider Name and Address Organization Details Recorded Time 876397 Product containin g penicilli n (product) medicatio n Not available Not available Not available 08/12/2022 85770 8001 SNOMED Job Marroquin MD [address] [place] [address],[address] [place] [address], [phone], [facility] 11:24:31 Medications Name Sig Start Date [...] Available Not Available Not Available Fluad Quad 8063-5754(65 yr up)(PF) 60 mcg (15 mcg x 4)/0.5mL IM syringe ADM 0.5ML IM UTD 08/12 completed Not Available Not Available Not Available Vitals None Recorded Social History Question Answer Notes LastModified by Organizat ion Details LastModified Time Tobacco Smoking Status Never Smoker Job Marroquin MD [address] [facility],[address], [place], [address], [facility] 08/12/2022 11:26:05 What Is Your Level [...] quadrivalent, preservative 7 completed Pau Flores null, [facility] 10/22/2023 10:29:12 Influenza, adjuvanted, trivalent, PF 9 completed Pua Flores null, [facility] 10/22/2023 10:29:12 zoster recombinant 0 completed Pau Flores null, [facility] 10/22/2023 10:29:12 zoster recombinant 0 completed Pau Flores null, [facility] 10/22/2023 10:29:12 Influenza, high-dose, quadrivalent, PF 1 completed Pau Flores null, [facility] 10/22/2023 10:29:12 Influenza, adjuvanted, quadrivalent, PF 0 completed Pau Flores null, [facility] 10/22/2023 10:29:12 Influenza, adjuvanted, quadrivalent, PF 3 completed Pau Flores null, [facility] 10/22/2023 10:29:12 COVID-19, mRNA, LNP-S, PF, 100 mcg/0.5mL dose or 50 mcg/0.25mL dose 1 completed Pau Flores null, [facility] 10/22/2023 10:29:12 COVID-19, mRNA, LNP-S, PF, 100 mcg/0.5mL dose or 50 mcg/0.25mL dose 1 completed Pau Flores null, [facility] 10/22/2023 10:29:12 COVID-19, mRNA, LNP-S, PF, 100 mcg/0.5mL dose or 50 mcg/0.25mL dose 1 completed Pau Flores null, [facility] 10/22/2023 10:29:12 COVID-19, mRNA, LNP-S, PF, 50 mcg/0.5 mL 3 completed Pau Flores null, [facility] 10/22/2023 10:29:12 Tdap 0 completed Pau Flores null, [facility] 10/22/2023 10:29:12 Tdap 0 completed Pau Flores null, [facility] 10/22/2023 10:29:12 Influenza, split virus, trivalent, preservative 4 completed Pau Flores null, [facility] 10/22/2023 10:29:12 Influenza, split virus, trivalent, PF 5 completed Pau Flores null, [facility] 10/22/2023 10:29:12 Influenza, split virus, trivalent, PF 6 completed Pau Flores null, [facility] 10/22/2023 10:29:12 Influenza, split virus, quadrivalent, PF 8 completed Pau Flores null, [facility] 10/22/2023 10:29:12 Influenza, split virus, quadrivalent, PF 6 completed Pau Flores null, [facility] 10/22/2023 10:29:12 Influenza, split virus, quadrivalent, PF 8 completed Pua Flores null, [facility] 10/22/2023 10:29:12 COVID-19, mRNA, LNP-S, PF, sean-sucrose, 30 mcg/0.3 mL 4 completed Leslye Cabello null, [facility] 02/04/2024 15:03:28 Influenza, high-dose, trivalent, PF 4 completed Leslye Cabello null, [facility] 02/04/2024 15:03:28 Pneumococcal conjugate PCV20, polysaccharide [id number] conjugate, adjuvant, PF 4 completed Job Marroquin MD [address] [place] [address], [phone], [facility] 07/13/2024 12:15:19 pneumococcal polysaccharide PPV23 2 completed Job Marroquin MD [address] [place] [address],[address], [address], [facility] 08/12/2022 11:24:18 Past Encounters Encounter ID Performer Location Encounter Start Date Encounter Closed Date Diagnosis/Indication Diagnosis SNOMED-CT Code Diagnosis ICD10 Code Diagnosis Note [id number] MD Bebeto [address]. [place] [id number] 10/19/2024 10:09:33 10/21/2024 13:12:20 Retention of urine [id number] R33.9 [id number] MD Bebeto Medina [address] [place] [id number] 10/27/2024 11:08:38 10/27/2024 12:08:40 Retention of urine [id number] R33.9 Health Concerns Section Related Observation LastModified by Organization Detai ls LastModified Time None Recorded Concern Status LastModified by Organization Details LastModified Time None Recorded Payers Encounter Date Sequence Insurance Name Policy Number Policy Pond Covered Member ID Pond Member ID Guarantor Name 10/27/2024 1 [employer] - DOS ON OR AFTER 19 (MEDICARE REPLACEMENT /ADVANTAGE - HMO) [id number] 06 Bear Kinney [id number] Bear Kinney Notes Date Note Type Note Provider Name and Address Organization Details Recorded Time 10/27/2024 text/html Pt presents to clinic for 2nd TOVNurse visit completed by Viviana Segura RN. MONICA Toure - [facility] 10/27/2024 12:08:36
--- OUTSIDE RECORDS SUMMARY | 2024-10-29 11:12 | XMS_ITS | Clinical Summary ---
Author Organization [facility] Address [address] [place] [address] Care Team Providers Care Farm Equipment Technician Name Role Phone Ángel Dwyer MD Primary Care Provider [phone] Allergies Active Allergy Reactions Criticality Noted Date [...] Dyskinesia of esophagus 11/10/2007 Actinic keratosis 11/10/2007 Encounters Date Type Department Care Team Description 10/27/2024 Orders Only [facility] Scanner 1 scan: (1-Ord) [place] [facility], FILL AND PULL/VOIDING TRIAL/TOV, 10/27/2024 10/19/2024 Orders Only [facility] Scanner 1 scan: (1-Ord) [place] [facility], FILL AND PULL/VOIDING TRIAL, 10/19/2024 from Last 3 Months Immunizations Immunization Administration Dates Next Due AMB INFLUENZA, IIV4 (AGE=>6M OS) [facility] (Flu Clinic Only) 02/13/2017 Amb Influenza, Inactivated [...] on file Legal Sex Male 5:24 AM NURSE LICENSED PRACTICAL Gender Identity Not on file Sexual Orientation Not on file Occupation Industry Job Start Date Job End Date works at [employer] Not on file Not on file Not on file Obstetrics History Last Filed Vital Signs Vital Sign Reading Time Taken Comments Blood Pressure 137/89 04/02/2024 11:17 AM NURSE LICENSED PRACTICAL Pulse 61 04/02/2024 11:17 AM NURSE LICENSED PRACTICAL Temperature 36.7 C (98.1 F) 04/02/2024 10:28 AM NURSE LICENSED PRACTICAL Respiratory Rate 14 04/02/2024 10:28 AM NURSE LICENSED PRACTICAL Oxygen Saturation 96% 04/02/2024 10:28 AM NURSE LICENSED PRACTICAL Inhaled Oxygen Concentration - - Weight 86.4 kg (190 lb 7.2 oz) 04/02/2024 10:28 AM NURSE LICENSED PRACTICAL Height 180.4 cm (5' 11.02) 04/02/2024 10:28 AM NURSE LICENSED PRACTICAL Body Mass Index 26.54 04/02/2024 10:28 AM NURSE LICENSED PRACTICAL Plan of Treatment Health Maintenance Due Date [...] Procedure Name Priority Date/Time Associated Diagnosis Comments SCAN-OPERATIVE/PROCE DURE REPORT 10/27/2024 12:00 AM CDT SCAN-OPERATIVE/PROCE DURE REPORT 10/19/2024 12:00 AM CDT LIPID PANEL W REFLEX MEASURED LDL Routine 01/23/2024 11:27 AM CDT Lipid screening COLONOSCOPY 10/23/2022 11:11 AM CDT ANTI HCV Routine 02/04/2014 2:23 PM CDT Need for hepatitis C screening test from Last 3 Months or Most Recently Relevant to Health Maintenance Results * SCAN-OPERATIVE/PROCEDURE REPORT (10/27/2024 12:00 AM CDT) us Scanner OTHER Final Result * SCAN-OPERATIVE/PROCEDURE REPORT (10/19/2024 12:00 AM CDT) us Scanner OTHER Final Result * LIPID PANEL W REFLEX MEASURED LDL (01/23/2024 11:27 AM CDT) CHOLESTEROL,TOTAL 181 100 - 199 mg/dL 01/23/2024 11:13 PM CDT [facility] Comment: Cholesterol, Total Reference Ranges Desirable <200 mg/dL Borderline 200-239 mg/dL High >=240 mg/dL TRIGLYCERIDES 47 <150 mg/dL 01/23/2024 11:13 PM CDT [facility] HDL CHOLESTEROL 62 >40 mg/dL 11:13 PM CDT [facility] NON-HDL CHOLESTEROL 119 <145 mg/dl 01/23/2024 11:13 PM CDT [facility] CHOL/HDL RATIO 2.92 <4.50 01/23/2024 11:13 PM CDT [facility] LDL CHOLESTEROL 110 <=130 mg/dL 01/23/2024 11:13 PM CDT [facility] VLDL CHOLESTEROL 9 <=30 mg/dL 01/23/2024 11:13 PM CDT [facility] PROVIDER ORDERED STATUS RANDOM 01/23/2024 11:13 PM CDT [facility] Blood BLOOD SPECIMEN / Unknown Venipuncture / Unknown 01/23/2024 11:27 AM CDT 01/23/2024 11:27 AM CDT Ángel Dwyer MD CHEMISTRY Final Resu lt [facility] [address] [place] [address], * COLONOSCOPY (10/23/2022 11:11 AM CDT) 10/23/2022 11:1 1 AM CDT Narrative Transcriptions Tommy, Dustin Parham MD - 10/23/2022 12:01 PM CDT Patient [...] adequate candidate for conscious sedation. The endoscope [id number] was passed through the anus andadvanced to [...] 11:11 AM Procedure Code(s): --- Professional --- 12421, Colonoscopy, flexible; with biopsy, single or multiple Diagnosis Code(s): --- Professional --- Z86.010, Personal history of colonicpolyps D12.8, Benign neoplasm of rectum K57.30, Diverticulosis of large intestine without perforation or abscess withoutbleeding Q43.8, Other specified congenitalmalformations of intestine CPT copyright 2021 [employer]. All rights reserved. The codes documented in this report are preliminary and upon ivf embryologist reviewmay be revised to meet current compliance requirements. Scope In: 11:35:04 AM Scope Withdrawal Time 0 hours 11 minutes 8 seconds Scope Out: 11:53:16 AM us Dustin Sanders MD PROCEDURE ORD Final Res ult * ANTI HCV [10500.2] (02/04/2014 2:23 PM CDT) HEPATITIS C ANTIBODY Non-Reacti ve Non-Reacti ve 02/04/2014 8:18 PM CDT [facility] Blood specimen (specimen) BLOOD SPECIMEN / Unknown Venipuncture / Unknown 02/04/2014 2:23 PM CDT 02/04/2014 2:23 PM CDT Narrative [facility] - 02/04/2014 8:18 PM CDT Antibodies to HCV not detected; does not exclude the possibility of exposure to HCV. us Pilar Keith SEND OUTS Final R esult [facility] [address] [place] [address], from Last 3 Months or Most Recently Relevant to Health Maintenance Insurance [facility] MEDICARE ADVANTAGE MR Care Teams Farm Equipment Technician Relationship Specialty Start Date End Date Ángel Dwyer [place] [address] PCP - General Family Practice 05/06/16
--- OUTSIDE RECORDS SUMMARY | 2024-10-29 11:12 | XMS_ITS | Data Portability ---
Author Organization [facility], [facility] Address [address] [place] [address] Care Team Providers Care Office Clerk Assistant Name Role Phone BRIDGETT RAMACHANDRAN Primary Care Provider [phone] Assessment No assessment recorded. Plan of Treatment [...] 2024 025 [facility], [address], [place], [address], 07/13/2024 12:18:01 PSA, total, serum or plasma 2024 025 [email or web address] [facility], [address], [place], [address], 07/13/2024 13:10:15 PSA, serum or plasma 2023 024 [email or web address] [facility], [address], [place], [address], 02/04/2024 15:40:36 PSA, serum or plasma 2023 024 [facility], [address], [place], [address], 10/22/2023 11:11:51 PSA, total, serum or plasma 2023 024 [email or web address] [facility], [address], [place], [address], 10/22/2023 13:39:53 Referral None recorded. Procedures None recorded. Surgeries None recorded. Imaging MRI, prostate, w/wo contrast - H/O elevated PSA 6.8) - check Prostate MRI 2023 024 [email or web address] [facility], [address], [address], [place], [address], 02/27/2024 15:31:16 Medication Orders None recorded. Patient TargetsNo targets recorded. Patient InstructionsNo instructions recorded. Reason for Referral None Reported. Results Created Date Observation Date Name Description Value Unit Range Abnormal Flag Note LastModifiedBy Organization Detail LastModifiedTime 10/22/1910/22/2023 PSA, serum or plasm a PSA ng/mL 0-4.0 NG/mL Not Available [facility] [address], [place], [address], 10/16/2023 16:55:21 02/04/20 24 02/04/2024 PSA, serum or plasm a PSA 6.8ng/ mL 0-4.0 NG/mL Not Available [facility] [address], [place], [address], 01/29/2024 11:47:30 07/13/19 25 07/13/2024 PSA, serum or plasm a PSA 5.9 ng/mL 0-4.0 NG/mL Not Available [facility] [address], [place], [address], 07/05/2024 15:15:36 03/09/20 24 03/09/2024 MRI, prost ate, w/wo contr ast EXAM: [...] interp reted by: DR. TOMY DIAZ M.D. [email or web address] [facility] [address], [place], [address], 03/11/2024 14:35:52 Result Notes Documentation Provider Name and Address Organization Details Recorded Time Mri, Prostate, W/wo Contrast : EXAM: MR PELVIS PROSTATE wwo CONTRAST LOCATION: [facility] [place] DATE: 03/09/2024 INDICATION: Elevated prostate specific antigen (PSA). COMPARISON: MRI 08/07/2015. TECHNIQUE: Routine MRI prostate protocol including T1, diffusion, thin-section high-resolution T2 and dynamic T1 thin-section without followed by with IV contrast. Study was processed using [employer] multiparametric computer-aided detection system to optimize radiologist interpretation by generating multiplanar and 3-D reconstructions and creating subtraction images from the dynamic contrast data. CONTRAST: 10 mL Gadavist FINDINGS: Prostate gland size: 7.0 cm transverse x 5.9 cm AP x 7.3 cm craniocaudal. Prostate volume: 138.3 mL. Peripheral zone: No focal prostate peripheral zone lesion with restricted diffusion identified. Transition zone: Signal changes consistent with benign prostatic hypertrophy are noted. The previously noted transition zone nodules are not currently identified. On T2-weighted imaging, no focal transition zone lesion can be seen with high-grade T2 features. The prostatic capsule appears intact. The rectoprostatic angle and neurovascular bundles are unremarkable. The seminal vesicles are symmetric and unremarkable. The urinary bladder is unremarkable. Remainder of the pelvis: No enlarged lymph nodes are identified in the pelvis. No aggressive-appearing lesions in the visualized bony pelvis. IMPRESSION: 1. No focal prostate lesion identified with suspicious imaging features. The previously noted nodules at the transition zone on the prior exam are not currently seen. 2. There are changes of enlarging benign prostatic hypertrophy, with an estimated prostate volume of 138.3 mL, previously 78 mL. This report was electronically interpreted by: DR. TMOY Larios [place], [place] - [facility] 03/11/2024 14:35:52 Procedures Surgical History Date Name Laterality Status Provider Name and Address Organization Details Recorded Time 10/28/19 25 Fill and Pull/Voiding Trial/TOV completed Viviana Tamayo [facility] 10/27/2024 12:03:42 10/20/19 25 Fill and Pull/Voiding Trial/TOV completed Viviana Tamayo [facility] 10/19/2024 11:21:02 07/13/19 25 Blood Draw/SCRIPT COORDINATOR/PSA RESULTS completed Job Marroquin MD [address] [place] [address],[address], [address], [facility] 07/13/2024 12:17:34 02/04/20 24 Blood Draw/SCRIPT COORDINATOR/PSA RESULTS completed Leslye Cabello [facility] 02/04/2024 15:05:53 10/22/19 24 Bladder Scan completed Pau Flores [facility] 10/22/2023 10:30:16 10/22/19 24 Blood Draw/SCRIPT COORDINATOR/PSA RESULTS completed Pau Flores [facility] 10/22/2023 10:30:20 08/13/19 23 SCRIPT COORDINATOR/blood draw completed Job Marroquin MD [address] [place] [address],[address] [place] [address], [address], [facility] 08/12/2022 11:26:11 05/19/19 22 Colonoscopy completed Job Marroquin MD [address] [place] [address],[address] [place] [address], [address], [facility] 07/13/2024 12:17:10 Removal of testis completed Job Marroquin MD [address] [place] [address],[address], [address], [facility] 08/12/2022 11:27:47 Imaging Results None recorded. Procedure Notes None recorded. Medical Equipment None Reported. Allergies Allergen ID Allergen Name Allergen Category Reaction Reaction Severity Criticality Documentation Date Start Date Code Code System Note Provider Name and Address Organization Details Recorded Time 173916 Product containin g penicilli n (product) medicatio n Not available Not available Not available 08/12/2022 21923 8001 SNOMED Job Marroquin MD [address] [place] [address],[address] [place] [address], [address], [facility] 03/27/202 3 11:24:31 Medications Name Sig Start Date [...] Available Not Available Not Available Fluad Quad 1989-5919(65 yr up)(PF) 60 mcg (15 mcg x 4)/0.5mL IM syringe ADM 0.5ML IM UTD 08/12 completed Not Available Not Available Not Available Vitals Date Recorded Body height Body mass index (BMI) Body weight Provider Name and Address Organization Details Last Updated DateTime 07/13/2024 181.61 cm 25.9 kg/m2 50855.37 g Job Marroquin MD [address] [facility],[address], [address] 07/13/2024 12:15:16 Date Recorded Body height Body mass index (BMI) Body weight Provider Name and Address Organization Details Last Updated DateTime 10/22/2023 181.61 cm 25.9 kg/m2 04510.37 g Pau Flores [facility] 10/22/2023 10:29:03 Date Recorded Body height Body mass index (BMI) Body weight Provider Name and Address Organization Details Last Updated DateTime 02/04/2024 181.61 cm 25.9 kg/m2 49067.37 g Leslye Cabello [facility] 02/04/2024 15:03:17 Social History Question Answer Notes LastModified by Organizat ion Details LastModified Time Tobacco Smoking Status Never Smoker Job Marroquin MD [address] [facility],[address], [address] 08/12/2022 11:26:05 What Is Your Level Of [...] quadrivalent, preservative 7 completed Pau Flores null, [facility] 10/22/2023 10:29:12 Influenza, adjuvanted, trivalent, PF 9 completed Pau Flores null, [facility] 10/22/2023 10:29:12 [facility] recombinant 0 [facility] 10:29:12 zoster recombinant 0 completed Pau Flores null, [facility] 10/22/2023 10:29:12 Influenza, high-dose, quadrivalent, PF 1 completed Pau Flores null, [facility] 10/22/2023 10:29:12 Influenza, adjuvanted, quadrivalent, PF 0 completed Pau Flores null, [facility] 10/22/2023 10:29:12 Influenza, adjuvanted, quadrivalent, PF 3 completed Pau Flores null, [facility] 10/22/2023 10:29:12 COVID-19, mRNA, LNP-S, PF, 100 mcg/0.5mL dose or 50 mcg/0.25mL dose 1 completed Pau Flores null, [facility] 10/22/2023 10:29:12 COVID-19, mRNA, LNP-S, PF, 100 mcg/0.5mL dose or 50 mcg/0.25mL dose 1 completed Pau Flores null, [facility] 10/22/2023 10:29:12 COVID-19, mRNA, LNP-S, PF, 100 mcg/0.5mL dose or 50 mcg/0.25mL dose 1 completed Pau Flores null, [facility] 10/22/2023 10:29:12 COVID-19, mRNA, LNP-S, PF, 50 mcg/0.5 mL 3 completed Pau Flores null, [facility] 10/22/2023 10:29:12 Tdap 0 completed Pau Flores null, [facility] 10/22/2023 10:29:12 Tdap 0 completed Pau Flores null, [facility] 10/22/2023 10:29:12 Influenza, split virus, trivalent, preservative 4 completed Pau Flores null, [facility] 10/22/2023 10:29:12 Influenza, split virus, trivalent, PF 5 completed Pau Flores null, [facility] 10/22/2023 10:29:12 Influenza, split virus, trivalent, PF 6 completed Pau Flores null, [facility] 10/22/2023 10:29:12 Influenza, split virus, quadrivalent, PF 8 completed Pau Flores null, [facility] 10/22/2023 10:29:12 Influenza, split virus, quadrivalent, PF 6 completed [facility] Flores null, [facility] 10/22/2023 10:29:12 Influenza, split virus, quadrivalent, PF 10/16/201 8 completed Pau Flores null, [facility] 10/22/2023 10:29:12 COVID-19, mRNA, LNP-S, PF, sean-sucrose, 30 mcg/0.3 mL 4 completed Leslye Cabello null, [facility] 02/04/2024 15:03:28 Influenza, high-dose, trivalent, PF 4 completed Leslye Cabello null, [facility] 02/04/2024 15:03:28 Pneumococcal conjugate PCV20, polysaccharide [id number] conjugate, adjuvant, PF 4 completed Job Marroquin MD [address] [place] [address],[address], [place], [address], [facility] 07/13/2024 12:15:19 pneumococcal polysaccharide PPV23 2 completed Job Marroquin MD [address] [place] [address],[address], [place], [address], [facility] 08/12/2022 11:24:18 Past Encounters Encounter ID Performer Location Encounter Start Date Encounter Closed Date Diagnosis/Indication Diagnosis SNOMED-CT Code Diagnosis ICD10 Code Diagnosis Note [id number] MD [facility] [address] [place] [address] 08/12/2022 11:01:54 08/15/2022 16:44:23 Prostate specific antigen above reference range [id number] R97.20 1. Elevated PSA- s/p MRI cognitive fusion TRUS prostate biopsy - (09/12/15) - 72 gm prostate - benign / acute inflammati on- PSA (4.4) - stable- Follow-up in 1 year with PSA and Bladder scan Benign pro static hyperplasia with outflow obstruction [id number] N40.1 2. BPH- has mild obstructiv e and irritative symptoms- observer for now- consider starting Flomax 0.4 mg daily is symptoms worsen [id number] MD [facility] [address] [place] [address] 10/22/2023 10:06:58 10/23/2023 09:52:19 Prostate specific antigen above reference range [id number] R97.20 1. Elevated PSA- s/p MRI cognitive fusion TRUS prostate biopsy - (09/12/15) - 72 gm prostate - benign / acute inflammati on- PSA (5.1) - increased - may be due to prostate irritation - Follow-up in 3 months with PSA(if PSA increases - recheck Prostate MRI and consider bx) Benign pro static hyperplasia with outflow obstruction [id number] N40.1 2. BPH- has mild obstructiv e and irritative symptoms- PVR = 109 mL- patient would like to observe for now- consider starting Flomax 0.4 mg daily is symptoms worsen [id number] Job Marroquin MD [address] [place] [address] 02/04/2024 14:52:39 02/09/2024 13:53:07 Prostate specific antigen above reference range [id number] R97.20 1. Elevated PSA- s/p MRI cognitive fusion TRUS prostate biopsy - (09/12/15) - 72 gm prostate - benign / acute inflammati on- PSA (6.8) - increased - may be due to prostate irritation - check Prostate MRI - will need UroNav bx if suspicious lesion is seen Benign pro static hyperplasia with outflow obstruction [id number] N40.1 H/O BPH- has mild obstructiv e and irritative symptoms- last PVR = 109 mL- patient would like to observe for now- consider starting Flomax 0.4 mg daily is symptoms worsen [id number] Job Marroquin MD [facility] [address] [place] [address] 07/13/2024 11:34:49 07/14/2024 14:30:48 Prostate specific antigen above reference range [id number] R97.20 1. Elevated PSA- s/p MRI cognitive fusion TRUS prostate biopsy - (09/12/15) - 72 gm prostate - benign / acute inflammati on- Prostate MRI (03/09/24) - 138.3 mL - no suspicious lesions seen- PSA (5.9) - decreased - may be due to prostate irritation - Follow-up in 6 months with PSA and Bladder scan Benign pro static hyperplasia with outflow obstruction [id number] N40.1 H/O BPH- has mild obstructiv e and irritative symptoms- last PVR = 109 mL- has large prostate (138 mL)- patient would like to observe for now- check Bladder scan at Follow-up- consider starting Flomax 0.4 mg daily or Finasterid e 5 mg daily if his symptoms worsen [id number] Job Marroquin MD [facility] [address] [place] [address] 10/19/2024 10:09:33 10/21/2024 13:12:20 Retention of urine 272071394 R33.9 [id number] MD [facility] [address] [place] [address] 10/27/2024 11:08:38 10/27/2024 12:08:40 Retention of urine 656241581 R33.9 Health Concerns Section Related Observation LastModified by Organization Detai ls LastModified Time None Recorded Concern Status LastModified by Organization Details LastModified Time None Recorded Advance Directives Directive None Recorded Payers Insurance Date Sequence Insurance Name Policy Number Policy Pond Covered Member ID Pond Member ID Guarantor Name 10/25/2024 1 [place] [id number] Christopher O Nirmal [id number] Christopher O Nirmal 10/25/2024 1 [employer] - DOS ON OR AFTER 19 (MEDICARE REPLACEMENT/ ADVANTAGE - HMO) [id number] Christopher O Nirmal [id number] Christopher O Nirmal 10/25/2024 1 [facility] [id number] Christopher O Nirmal [id number] Christopher O Nirmal Notes Date Note Type Note Provider Name and Address Organization Details Recorded Time 10/22/2023 text/html 68 yo male with H/O [...] gland - 12-12:30 o'clock Job Marroquin MD [address] [place] [address],[facility] [address], [address], [facility] 10/22/2023 20:00:34 02/04/2024 text/html 68 yo [...] gland - 12-12:30 o'clock Job Marroquin MD [address] [place] [address],[address], [place], [address], [facility] 02/07/2024 20:31:20 07/13/2024 text/html 68 yo [...] no suspicious lesions seen Job Marroquin MD [address] [facility],[address], [place], [address], [facility] 07/13/2024 14:06:07 10/19/2024 text/html Pt went into retention on 10/16. Catheter was place at [facility]. OK for TOV per JOANNA Brock 6/2Nurse visit completed by Viviana Segura RN. MONICA Toure [facility] 10/19/2024 11:29:46 10/27/2024 text/html Pt presents to clinic for 2nd TOVNurse visit completed by Viviana Segura RN. MONICA Toure [facility] 10/27/2024 12:08:36
[2024-10-29 11:16] VITALS: BP 160/103; PULSE 82; RESP 16; TEMP 36.8; O2SAT 99
--- NOTE | 2024-10-29 11:39 | ED_ITS ---
HPI - General Adult General Chief complaint: Urogenital Problems, Male Stated complaint: UTI Time Seen by Provider: 10/29/24 11:11 Source: patient Mode of arrival: ambulatory Limitations: no limitations History of Present Illness HPI narrative: [age] male presents today with urinary retention that started last night. Patient is able to dribble nothing aside from that. Denies any current blood in his urine. No fevers or chills. No nausea or vomiting. He spoke to his urologist this morning, Dr. Marroquin who recommended patient present for a catheter and a UA to rule out UTI. Patient was seen on 10/17/2024 and had a catheter placed at that time for urinary retention, that was removed the following day. He then presented on 10/19 with recurrent urinary retention and a catheter was placed on that day as well. He had that catheter in place for approximately a week he believes before it was removed. He started taking finasteride and Flomax. Has been doing well for the last 3 days, unfortunately urinary tension began again. Patient does have known BPH. Complains of abdominal discomfort. Related Data Home Medications ?Medication ?Instructions ?Recorded ?Confirmed finasteride 1 mg tablet 1 mg PO DAILY 10/29/2410/29 tamsulosin 0.4 mg capsule 0.4 mg PO DAILY 10/29/24 Allergies Allergy/AdvReac Type Severity Reaction Status Date / Time Penicillins Allergy Verified 10/29/24 11:24 Review of Systems Status of ROS: Reports: 10 or more systems reviewed and unremarkable except as noted in History and below [facility] Medical History Dyskinesia of esophagus ?K22.4 - Dyskinesia of esophagus (ICD-10) Back pain ?M54.9 - Dorsalgia, unspecified (ICD-10) Personal history of colonic polyps ?Z86.0100 - Personal history of colon polyps, unspecified (ICD-10) Elevated prostate specific antigen (PSA) ?R97.20 - Elevated prostate specific antigen [PSA] (ICD-10) Surgical History History of testicular surgery ?Z98.890 - Other specified postprocedural states (ICD-10) History of colonoscopy ?Z98.890 - Other specified postprocedural states (ICD-10) History of prostate biopsy ?Z98.890 - Other specified postprocedural states (ICD-10) Social History Smoking Status: Never smoker Second hand tobacco smoke exposure: No How often do you have a drink containing alcohol: never AUDIT-C Alcohol total score: 0 Non-prescribed substance use: denies use Exam Narrative: Exam Narrative: Well-nourished well-developed patient, appears mildly uncomfortable. Alert and oriented. Answers questions appropriately. Mood and affect are appropriate. Thoughts are goal oriented and rational. No tangential or magical thinking noted. Patient speaks in full sentences without needing to catch his breath. Patient does not appear ill or toxic. HEENT: Normocephalic atraumatic. Pupils are equally round reactive to light. Extraocular muscles are intact. Conjunctivae are moist without any icterus noted. Moist mucous membranes. Abdomen: Soft but slightly distended. He does have suprapubic discomfort. Skin: Well perfused. Const: Vital Signs, click to edit/add: Vital Signs - 24 hr 10/29/24 11:16 Temperature 98.2 F Pulse Rate [Left B rachial] 82 Respiratory Rate 16 Blood Pressure [Ri ght Upper Arm] 160/103 H Pulse Oximetry 99 Oxygen Delivery Me thod Room Air Course Course ED Course: Patient was able to give a very small urine sample-does show 1+ blood, trace leukocyte esterase. Urine culture pending. Bladder scan showed just over 600 mL of urine. Catheter was placed without difficulty, 610 mL was drained. Patient felt significantly better. Vital Signs Vital signs: Initial Vital Signs Temperature 98.2 F 10/29/24 11:16 Temperature Source Tympanic 10/29/24 11:16 Pulse Rate 82 10/29/24 11:16 Respiratory Rate 16 10/29/24 11:16 Blood Pressure 160/103 H 10/29/24 11:16 Blood Pressure Mean 122 H 10/29/24 11:16 Pulse Oximetry 99 10/29/24 11:16 Oxygen Delivery Method Room Air 10/29/24 11:16 Vital Signs Temperature 98.2 F 10/29/24 11:16 Pulse Rate 82 10/29/24 11:16 Respiratory Rate 16 10/29/24 11:16 Blood Pressure 160/103 H 10/29/24 11:16 Pulse Oximetry 99 10/29/24 11:16 Oxygen Delivery Method Room Air 10/29/24 11:16 Temperature 98.2 F 10/29/24 11:16 Pulse Rate 82 10/29/24 11:16 Respiratory Rate 16 10/29/24 11:16 Blood Pressure 160/103 H 10/29/24 11:16 Pulse Oximetry 99 10/29/24 11:16 Oxygen Delivery Method Room Air 10/29/24 11:16 Medical Decision Making MDM Narrative Medical decision making narrative: 69-year-old male with urinary retention, recurrent. He will follow-up with Urology. Lab Data Lab results reviewed: Yes I reviewed the patient's lab results Labs: Lab Results 10/29/24 Range/Units 11:26 Urine Color Yellow (Yellow) Urine Appearance Clear (Clear) Urine pH 7.0 (5.0-8.5) Ur Specific [place] 1.015 (1.000-1.030) Urine Protein Negative (Negative) Urine Glucose (UA) Negative (Negative) Urine Ketones Negative (Negative) Urine Blood 1+ A (Negative) Urine Nitrite Negative (Negative) Urine Bilirubin Negative (Negative) Urine Urobilinogen 0.2 (0.2-1.0) Ur Leukocyte Esterase Trace A (Negative) Urine RBC 2-5 A (0-2) Urine WBC 2-5 (0-5) Ur Squamous Epith Cells Few (None-Few) Urine Bacteria Few A (None) Discharge Plan Discharge Clinical Impression: Acute urinary retention, BPH (benign prostatic hyperplasia) Patient Disposition: Home, Self-Care Condition: Improved Additional Instructions: Leave catheter in until you have a plan with your urologist. Contact them today for followup management. Continue Flomax and finasteride as prescribed. Prescriptions: No Action tamsulosin 0.4 mg capsule 0.4 mg PO DAILY finasteride 1 mg tablet 1 mg PO DAILY Follow Up/Referrals: Ángel Dwyer MD [Primary Care Provider, Family Practice] Stand Alone Forms: Quick Hang Info Instructions
[2024-10-29 11:44] LABS: Appearance Urine Clear (Clear); Bilirubin Urine Negative (Negative); Blood Urine 1+ (Negative); Color Urine Yellow (Yellow); Glucose Urine Negative (Negative); Ketones Urine Negative (Negative); Leukocyte Esterase Urine Trace (Negative); Nitrite Urine Negative (Negative); Protein Urine Negative (Negative); Specific Gravity Urine 1.015 (1.000-1.030); Urobilinogen Urine 0.2 (0.2-1.0)
[2024-10-29 11:56] LABS: Bacteria Urine Few; Squamous Epithelial Cell Urine Few (None-Few)
--- NOTE | 2024-10-29 12:31 | PC.NURSE ---
Bladder scan prior to catheter incertion for 618. cude cath placed without issue. Pt tolerated well. Drained 630 from the bag.
== END 2024-10-29 12:35 | disposition home or self-care (01) ==
LOC: ED 12:34
PROVIDERS: Emergency Provider Family Medicine; PCP Family Medicine
DX: N40.1 Benign prostatic hyperplasia with lower urinary tract symptoms (principal); R33.8 Other retention of urine; R10.9 Unspecified abdominal pain
CPT/HCPCS: 51702; 81001; 87086; 99282; 99284